=== PATIENT | female | born 1990 | race Caucasian/White ===

== ENCOUNTER 2016-04-28 23:03 | Emergency (ER) | payer OTHER ==
[~2016-04-28] VITALS: Ht 165.1 cm; Wt 72.6 kg
[~2016-04-28 23:03] MED LIST: NITROFURANTOIN100 M2 ORAL; NKM
[2016-04-29 00:18] LABS: APPEARANCE,URINE CLEAR; KETONES,URINE NEGATIVE (NEGATIVE); LEUKOCYTE ESTERASE ,URINE 1+ (NEGATIVE); NITRITE,URINE NEGATIVE (NEGATIVE); PH,URINE 8 (4.5-8.0); PROTEIN,URINE NEGATIVE (NEGATIVE); UROBILINOGEN,URINE NORMAL MG/DL (0.0-1.0)
[2016-04-29 00:25] LABS: RBC,URINE 0-2 /HPF (0 - 2); SQUAMOUS EPITHELIAL CELL,UR FEW /LPF (NONE/OCC); WBC,URINE 0-2 /HPF (0 - 2)
[2016-04-29 00:26] LABS: BACTERIA,URINE OCCASIONAL /HPF
[2016-04-29] MEDS ORDERED: PHENAZOPYRIDIN200 MG ORAL (01:32)
[2016-04-29 01:41] VITALS: BP 128/87
--- NOTE | 2016-04-29 03:00 | Emergency Room Report ---
History of Present Illness General Chief Complaint: Female Urogenital Problems Source: Patient Present Illness HPI 25 YO F with polyuria for 2-3 days and nausea. Denies dysuria. Was recently completed course of Abx for UTI. Denies discharge, sexual activity. Denies vomiting, abd pain, diarhea, fever/chills. Allergies: Coded Allergies: SULFA (SULFONAMIDE ANTIBIOTICS) (Verified Allergy, Severe, Hives, 08/16/14) Patient History Past Medical History: none Past Surgical History: none Pertinent Family History: none Social History: Denies: alcohol use, drug use, smoking Last Menstrual Period: 07/2015 Now: No : 2 Para: 0 Immunizations: UTD Reviewed Nursing Documentation: PMH: Agreed, PSxH: Agreed Nursing Documentation-PMH History Of Psychiatric Problem: Yes - anxiety Review of Systems All Other Systems: negative except mentioned in HPI Physical Exam Vital Signs Date Time Temp Pulse Resp B/P Pulse Ox O2 Delivery O2 Flow Rate FiO2 04/28/16 23:13 98.2 123 16 136/82 100 Room Air Sp02 EP Interpretation: reviewed, normal General Appearance: normal inspection, well appearing, no apparent distress, alert, GCS 15, non-toxic Head: normocephalic, atraumatic Eyes: bilateral eye EOMI, bilateral eye PERRL ENT: normal ENT inspection, hearing grossly normal, normal voice Neck: normal inspection, full range of motion, supple, no bony tend Respiratory: normal inspection, lungs clear, normal breath sounds, no respiratory distress, no retraction, no wheezing Cardiovascular #1: regular rate, rhythm, no edema Gastrointestinal: normal inspection, normal bowel sounds, non tender, soft, no guarding, no hernia Genitourinary: no CVA tenderness Musculoskeletal: normal inspection, back normal, normal range of motion, Sergio' s Sign negative Neurologic: normal inspection, alert, oriented x3, responsive, limerock tower loader III-XII nml as tested, motor strength/tone normal, speech normal Psychiatric: normal inspection, judgement/insight normal, mood/affect normal Skin: normal inspection, normal color, no rash Medical Decision Making Diagnostic Impression: Primary Impression: Dysuria ER Course 25 YO F with dysuria. VSS. Afebrile. No systemic symptoms. UA negative for infection PO zofran given for nausea. Abd non-focal. Low concern for acute bacterial or surgical process Rx Pyrddium DC home Last Vital Signs Date Time Temp Pulse Resp B/P Pulse Ox O2 Delivery O2 Flow Rate FiO2 04/29/16 01:41 97.2 86 14 128/87 99 Room Air Status: improved Disposition: HOME, SELF-CARE Condition: Improved Scripts Phenazopyridine Hcl* (PYRIDIUM*) 200 Mg Tablet 200 MG ORAL THREE TIMES A DAY for 2 Days, #6 TAB 0 Refills Prov: TALI GLORIA M.D. 04/29/16 Referrals: [facility] (PCP) Patient Instructions: Dysuria TALI GLORIA M.D. Apr 29, 2016 03:00
== END 2016-04-29 01:41 | disposition home or self-care (01) ==
LOC: EMR 23:55
DX: R30.0 Dysuria (principal); Z88.2 Allergy status to sulfonamides; F41.9 Anxiety disorder, unspecified
CPT/HCPCS: 81003; 81025; 99283

== ENCOUNTER 2016-05-21 00:37 | Emergency (ER) | payer OTHER ==
[~2016-05-21] VITALS: Ht 165.1 cm; Wt 77.1 kg
[~2016-05-21 00:37] MED LIST changes: +PHENAZOPYRIDIN200 MG ORAL
[2016-05-21] MEDS ORDERED: Ketorolac 30mg Inj IV ONE (01:30)
--- NOTE | 2016-05-21 01:30 | Emergency Room Report ---
History of Present Illness General Chief Complaint: Vomiting Source: Patient Present Illness HPI This is a 26-year-old female with no significant past medical history. She presents with chief complaint abdominal pain with vomiting. Onset about 2 hours ago. Multiple episode vomiting. Nonbloody and nonbilious. Pain is 10 out of 10. No diarrhea. Allergies: Coded Allergies: SULFA (SULFONAMIDE ANTIBIOTICS) (Verified Allergy, Severe, Hives, 08/16/14) Patient History Past Medical History: see triage record, old chart reviewed Past Surgical History: none Pertinent Family History: none Social History: Reports: drug use - History of amphetamine, smoking Last Menstrual Period: Apr Now: No Immunizations: other Reviewed Nursing Documentation: PMH: Agreed, PSxH: Agreed Review of Systems Eye: Denies: blurred vision, eye pain ENT: Denies: ear pain, nose congestion, throat swelling Respiratory: Denies: cough, shortness of breath Cardiovascular: Denies: chest pain, palpitations Gastrointestinal: Reports: abdominal pain, nausea, vomiting Musculoskeletal: Denies: back pain, joint pain Skin: Denies: rash Neurological: Denies: headache, numbness Endocrine: Denies: increased thirst, increased urine Hematologic/Lymphatic: Denies: easy bruising All Other Systems: negative except mentioned in HPI Physical Exam Vital Signs Date Time Temp Pulse Resp B/P Pulse Ox O2 Delivery O2 Flow Rate FiO2 05/21/16 01:01 97.7 103 16 108/71 94 Room Air vitals normal Sp02 EP Interpretation: reviewed, normal General Appearance: well appearing, no apparent distress, alert Head: normocephalic, atraumatic Eyes: bilateral eye EOMI, bilateral eye PERRL ENT: hearing grossly normal, normal pharynx Neck: full range of motion, supple, no meningismus Respiratory: chest non-tender, lungs clear, normal breath sounds Cardiovascular #1: regular rate, rhythm, no murmur Gastrointestinal: normal bowel sounds, no mass, no organomegaly, no bruit, non- distended, tenderness - Diffuse Musculoskeletal: back normal, gait/station normal, normal range of motion Neurologic: alert, oriented x3 Psychiatric: mood/affect normal Skin: warm/dry Medical Decision Making Diagnostic Impression: Primary Impression: Vomiting Qualified Codes: R11.2 - Nausea with vomiting, unspecified Additional Impression: Abdominal pain Qualified Codes: R10.84 - Generalized abdominal pain ER Course Patient presents with abdominal pain and vomiting. She is asymptomatic right now. On repeat exam no pain. Abdomen soft. Good bowel sounds. I see no evidence of acute abdomen. No evidence of obstruction. She has not given a urine sample yet. She has no symptom of her urinary tract infection. [place] better and wants to go home. She does have an elevated white count. This is probably secondary to acute stress response and/or pain and/or viral infection. Lab Results Impression labs with elevated WBC Last Vital Signs Date Time Temp Pulse Resp B/P Pulse Ox O2 Delivery O2 Flow Rate FiO2 05/21/16 01:01 97.7 103 16 108/71 94 Room Air Status: improved Disposition: HOME, SELF-CARE Condition: Stable Patient Instructions: Nausea and Vomiting, Adult Additional Instructions: Followup with your Dr. in 2-3 days. Return if worse. JOHNNY BLEVINS M.D. May 21, 2016 01:30
[2016-05-21 01:48] LABS: MEAN CORPUSCULAR HEMOGLOBIN 32.6 PG (27.0-31.0); MEAN CORPUSCULAR HGB CONC 34.6 G/DL (32.0-36.0); MEAN CORPUSCULAR VOLUME 94 FL (80-99); PLATELET COUNT 279 K/UL (150-450); RED CELL DISTRIBUTION WIDTH 11.8 % (11.6-14.8); WHITE BLOOD COUNT 15.2 K/UL (4.8-10.8)
[2016-05-21 01:57] VITALS: BP 110/74
[2016-05-21 02:04] LABS: ALANINE AMINOTRANSFERASE 17 U/L (3-33); ALBUMIN/GLOBULIN RATIO 1.2 (1.0-2.7); ANION GAP 16 (5-15); ASPARTATE AMINO TRANSFERASE 19 U/L (5-40); CALCIUM 9.1 mg/dL (8.6-10.2); CARBON DIOXIDE 25 mEQ/L (20-30); CHLORIDE 100 mEQ/L (98-107); CREATININE 0.8 mg/dL (0.5-0.9); GLOMERULAR FILTRATION RATE > 60 mL/min (>60); HEMOLYSIS 6; LIPASE 42 U/L (< 60); POTASSIUM 4.2 mEQ/L (3.4-4.9); SODIUM 141 mEQ/L (135-145); TOTAL PROTEIN 7.8 g/dL (6.6-8.7)
[2016-05-21 03:07] VITALS: BP 114/78
[2016-05-21 03:10] VITALS: BP 114/78
== END 2016-05-21 03:11 | disposition home or self-care (01) ==
LOC: EMR 01:20
DX: R11.2 Nausea with vomiting, unspecified (principal); R10.84 Generalized abdominal pain; Z88.2 Allergy status to sulfonamides; F17.200 Nicotine dependence, unspecified, uncomplicated
CPT/HCPCS: 36415; 80053; 83690; 85025; 96361; 96374; 96375; 99284; J1885; J2405

== ENCOUNTER 2016-06-27 23:45 | Emergency (ER) | payer OTHER ==
[~2016-06-27] VITALS: Ht 165.1 cm; Wt 72.1 kg
[2016-06-28 00:31] VITALS: BP 117/77
[2016-06-28] MEDS ORDERED: Bactrim DS (160mg/800mg) tab ORAL ONE (00:45)
[2016-06-28] MEDS ORDERED: CLINDAMYCIN HC300 MG ORAL (00:53)
--- NOTE | 2016-06-28 00:54 | Emergency Room Report ---
History of Present Illness General Chief Complaint: Skin Rash/Abscess Source: Patient Present Illness HPI Is a 26-year-old female who is right-hand dominant. She presents with a rash and swelling to the right index finger. Onset for 4 days now. It drained today. There was a blister over it. She thought it may be a spider bite. Denies any other complaint. Denies any burn. Allergies: Coded Allergies: SULFA (SULFONAMIDE ANTIBIOTICS) (Verified Allergy, Severe, Hives, 08/16/14) Patient History Past Medical History: see triage record, old chart reviewed Past Surgical History: other Pertinent Family History: none Social History: Denies: drug use Last Menstrual Period: 2 MONTHS AGO Now: No Immunizations: other Reviewed Nursing Documentation: PMH: Agreed, PSxH: Agreed Review of Systems Eye: Denies: blurred vision, eye pain ENT: Denies: ear pain, nose congestion, throat swelling Respiratory: Denies: cough, shortness of breath Cardiovascular: Denies: chest pain, palpitations Gastrointestinal: Denies: abdominal pain, diarrhea, nausea, vomiting Musculoskeletal: Denies: back pain, joint pain Skin: Denies: rash Neurological: Denies: headache, numbness Endocrine: Denies: increased thirst, increased urine Hematologic/Lymphatic: Denies: easy bruising All Other Systems: negative except mentioned in HPI Physical Exam Vital Signs Date Time Temp Pulse Resp B/P Pulse Ox O2 Delivery O2 Flow Rate FiO2 06/28/16 00:23 98.4 100 16 117/77 98 vitals normal Sp02 EP Interpretation: reviewed, normal General Appearance: well appearing, no apparent distress, alert Head: normocephalic, atraumatic Eyes: bilateral eye EOMI, bilateral eye PERRL ENT: hearing grossly normal, normal pharynx Neck: full range of motion, supple, no meningismus Respiratory: chest non-tender, lungs clear, normal breath sounds Cardiovascular #1: regular rate, rhythm, no murmur Gastrointestinal: normal bowel sounds, non tender, no mass, no organomegaly, no bruit, non-distended Musculoskeletal: back normal, gait/station normal, normal range of motion, other - right index finger: 1cm area of erythema. circular. Yellowish drainage. Psychiatric: mood/affect normal Skin: warm/dry Medical Decision Making Diagnostic Impression: Primary Impression: Infection of index finger ER Course Patient presents with infection the right index finger. This could be an abscess versus a burn. She does have a history of methamphetamine abuse. This may be from a pipe. No evidence of necrotizing fasciitis. We'll going to her on antibiotics to cover for staph infection. No evidence of septic joint Last Vital Signs Date Time Temp Pulse Resp B/P Pulse Ox O2 Delivery O2 Flow Rate FiO2 06/28/16 00:31 98.4 16 117/77 98 06/28/16 00:23 100 Status: improved Disposition: HOME, SELF-CARE Condition: Stable Scripts Clindamycin Hcl (CLINDAMYCIN HCL) 300 Mg Capsule 300 MG ORAL THREE TIMES A DAY, #21 CAP Prov: JOHNNY BLEVINS M.D. 06/28/16 Patient Instructions: Abscess Additional Instructions: Keep clean. Follow with in 2-3 days. Return if symptom worsen. JOHNNY BLEVINS M.D. Jun 28, 2016 00:54
[2016-06-28] MEDS ORDERED: Clindamycin 150mg cap ORAL ONE (01:00)
[2016-06-28 01:02] VITALS: BP 117/77
== END 2016-06-28 01:02 | disposition home or self-care (01) ==
LOC: EMR 06-28 00:55
DX: L08.9 Local infection of the skin and subcutaneous tissue, unspecified (principal); Z88.2 Allergy status to sulfonamides
CPT/HCPCS: 99283

== ENCOUNTER 2016-11-03 14:19 | Emergency (ER) | payer OTHER ==
[~2016-11-03] VITALS: Ht 167.6 cm; Wt 81.6 kg
[~2016-11-03 14:19] MED LIST changes: +CLINDAMYCIN HC300 MG ORAL
[2016-11-03 15:01] VITALS: BP 100/70
--- NOTE | 2016-11-03 15:26 | Emergency Room Report ---
History of Present Illness General Chief Complaint: General Complaint Source: Family Member Present Illness HPI 26 YO Female presents to the ED brought by mother c/o increased lethargy, nausea , and disoriented after starting Risperdal and Zoloft 2 days ago. pt. has hx of schizophrenia, depression, anxiety, and methamphetamine abuse and dependence. pt. has gone through detox several times, and most recently pt. was d/c from psychiatric facility after being started on above medications. pt. denies SI or HI, she reports she is worried because she thinks she is " bad" and that "there are demons, and she does not want to be bad" pt. denies increase in her delusions. mother states that she has been tried on several medications in the past, and some work for approximately 2 weeks before pt. becomes aggressive, or has other side effects. Denies abdominal pain, vomiting, joint pain, fevers, rashes. mother reports hx of aggression. Mother denies current aggression from the daughter and reports feeling safe. mother states she does not have a regular PCP or psychiatric provider. Denies CP, Palpitations, LOC, AMS, dizziness, Changes in Vision, Sensation, paresthesias, or a sudden severe headache. Allergies: Coded Allergies: SULFA (SULFONAMIDE ANTIBIOTICS) (Verified Allergy, Severe, Hives, 08/16/14) Patient History Past Medical History: see triage record Past Surgical History: none Pertinent Family History: none Social History: Reports: drug use - meth Last Menstrual Period: now Now: No Reviewed Nursing Documentation: PMH: Agreed, PSxH: Agreed Review of Systems All Other Systems: negative except mentioned in HPI Physical Exam Vital Signs Date Time Temp Pulse Resp B/P Pulse Ox O2 Delivery O2 Flow Rate FiO2 11/03/16 14:41 97.9 94 14 100/70 98 Room Air Sp02 EP Interpretation: reviewed, normal General Appearance: no apparent distress, alert, GCS 15, non-toxic Head: normocephalic, atraumatic Eyes: bilateral eye PERRL, bilateral eye normal inspection ENT: hearing grossly normal, normal pharynx, no angioedema, normal voice Neck: full range of motion, supple/symm/no masses Respiratory: lungs clear, normal breath sounds, speaking full sentences - very slow speech Cardiovascular #1: regular rate, rhythm, no edema Gastrointestinal: non tender, soft, no guarding Musculoskeletal: back normal, gait/station normal, normal range of motion, non- tender Neurologic: alert, oriented x3, responsive, motor strength/tone normal, sensory intact, speech normal Psychiatric: memory normal, no suicidal/homicidal ideation, depressed affect, other - delusions of demons, extremly flat affact Skin: normal color, no rash, warm/dry, well hydrated Medical Decision Making PA Attestation Dr. fernandez is my supervising Physician whom patient management has been discussed with. Diagnostic Impression: Primary Impression: Encounter for medication adjustment Additional Impression: Psychotic disorder with delusions ER Course 26 YO Female presents to the ED brought by mother c/o increased lethargy, nausea , and disoriented after starting Risperdal and Zoloft 2 days ago. pt. has hx of schizophrenia, depression, anxiety, and methamphetamine abuse and dependence. pt. has gone through detox several times, and most recently pt. was d/c from psychiatric facility after being started on above medications. pt. denies SI or HI, she reports she is worried because she thinks she is " bad" and that "there are demons, and she does not want to be bad" pt. denies increase in her delusions. mother states that she has been tried on several medications in the past, and some work for approximately 2 weeks before pt. becomes aggressive, or has other side effects. Denies abdominal pain, vomiting, joint pain, fevers, rashes. mother reports hx of aggression. Mother denies current aggression from the daughter and reports feeling safe. mother states she does not have a regular PCP or psychiatric provider. Denies CP, Palpitations, LOC, AMS, dizziness, Changes in Vision, Sensation, paresthesias, or a sudden severe headache. Pt is has flat affect and is restless. reports delusions of demons, and " that she is possessed and wants to be good" -mother discusses hx of drug use: meth, and several detox facilities as well as 5150 holds. Ddx considered but are not limited to OD, SI/HI, psychosis, UTI, intoxication Vital signs: are WNL, pt. is afebrile H&PE are most consistent with behavioral/mental health issue ORDERS: -Tylenol PO for FALK 4/10 in severity - Telephone consult with Dr. Jessica ( psych MD) regarding medication management. : pt. to be d/c from am dosage of Risperdal, and zoloft will be switched to Cymbalta daily as less nausea side-effects. ED INTERVENTIONS: - d/w parent and patient the changes to medications and to follow up at [facility]. -D/w mother that psychiatric medications take time to work and that it is important to establish her daughter with a Provider. DISCHARGE: At this time pt. is stable for d/c to home. Will provide printed patient care instructions, and any necessary prescriptions. Care plan and follow up instructions have been discussed with the patient prior to discharge. Last Vital Signs Date Time Temp Pulse Resp B/P Pulse Ox O2 Delivery O2 Flow Rate FiO2 11/03/16 14:41 97.9 94 14 100/70 98 Room Air Disposition: HOME, SELF-CARE Condition: Stable Physician Consult: Dr. Jessica Scripts Duloxetine (Cymbalta) 20 Mg Capsule. 20 MG ORAL DAILY for 30 Days, #30 CAP Prov: Amy Gold 11/03/16 Risperidone* (RISPERDAL*) 2 Mg Tablet 2 MG ORAL QHS, #20 TAB 0 Refills Prov: Amy Gold 11/03/16 Patient Instructions: Schizophrenia Additional Instructions: Take medications as directed. Follow up with a Psychiatric Provider in 2-3 days, even if your symptoms have resolved. --Please review [facility] , if you do not already have a psychiatric provider to continue medication management. Recommend cognitive behavioral therapy in conjunction with medication management. Return sooner to ED if new symptoms occur, or current symptoms become worse. - Please note that this Emergency Department Report was dictated using [employer] collector driver technology software, occasionally this can lead to erroneous entry secondary to interpretation by the dictation equipment. Amy Gold Nov 03, 2016 15:26
[2016-11-03] MEDS ORDERED: CYMBALTA20 MG ORAL (15:28)
[2016-11-03] MEDS ORDERED: RISPERDAL2 MG ORAL (15:28)
[2016-11-03 15:46] VITALS: BP 100/70
== END 2016-11-03 18:03 | disposition home or self-care (01) ==
LOC: EMR 15:30
DX: F29 Unspecified psychosis not due to a substance or known physiological condition (principal); F22 Delusional disorders; F41.9 Anxiety disorder, unspecified; Z88.2 Allergy status to sulfonamides
CPT/HCPCS: 99284

== ENCOUNTER 2017-01-06 17:30 | Emergency (ER) | payer OTHER ==
[~2017-01-06] VITALS: Ht 165.1 cm; Wt 72.6 kg
[~2017-01-06 17:30] MED LIST changes: +CYMBALTA20 MG ORAL; +RISPERDAL2 MG ORAL
[2017-01-06 17:45] VITALS: BP 105/64
[2017-01-06 18:16] LABS: BASOPHILS % (AUTO) 1.1 % (0.0-2.0); EOSINOPHILS % (AUTO) 0.8 % (0.0-3.0); LYMPHOCYTES % (AUTO) 31.7 % (20.0-45.0); MEAN CORPUSCULAR HEMOGLOBIN 34.5 PG (27.0-31.0); MEAN CORPUSCULAR HGB CONC 35.4 G/DL (32.0-36.0); MEAN CORPUSCULAR VOLUME 97 FL (80-99); MEAN PLATELET VOLUME 5.4 FL (6.5-10.1); MONOCYTES % (AUTO) 6.9 % (1.0-10.0); NEUTROPHILS % (AUTO) 59.5 % (45.0-75.0); PLATELET COUNT 273 K/UL (150-450); RED BLOOD COUNT 4.33 M/UL (4.20-5.40); RED CELL DISTRIBUTION WIDTH 10.9 % (11.6-14.8); WHITE BLOOD COUNT 6.4 K/UL (4.8-10.8)
[2017-01-06 18:34] LABS: ALANINE AMINOTRANSFERASE 9 U/L (3-33); ALBUMIN/GLOBULIN RATIO 1.2 (1.0-2.7); ANION GAP 8 (5-15); ASPARTATE AMINO TRANSFERASE 13 U/L (5-40); CALCIUM 9.4 mg/dL (8.6-10.2); CARBON DIOXIDE 29 mEQ/L (20-30); CHLORIDE 103 mEQ/L (98-107); CREATININE 0.7 mg/dL (0.5-0.9); GLOMERULAR FILTRATION RATE > 60 mL/min (>60); HEMOLYSIS 2; LIPASE 70 U/L (< 60); POTASSIUM 4.1 mEQ/L (3.4-4.9); SODIUM 140 mEQ/L (135-145); TOTAL PROTEIN 7.3 g/dL (6.6-8.7)
[2017-01-06 18:44] LABS: APPEARANCE,URINE CLOUDY; KETONES,URINE NEGATIVE (NEGATIVE); LEUKOCYTE ESTERASE ,URINE 2+ (NEGATIVE); NITRITE,URINE NEGATIVE (NEGATIVE); PH,URINE 6 (4.5-8.0); PROTEIN,URINE 3+ (NEGATIVE); UROBILINOGEN,URINE NORMAL MG/DL (0.0-1.0)
[2017-01-06 18:46] LABS: RBC,URINE TNTC /HPF (0 - 2)
[2017-01-06 18:48] LABS: BACTERIA,URINE OCCASIONAL /HPF; SQUAMOUS EPITHELIAL CELL,UR OCCASIONAL /LPF (NONE/OCC); WBC,URINE 0-2 /HPF (0 - 2)
[2017-01-06 19:16] VITALS: BP 104/68
[2017-01-06] MEDS ORDERED: ZOFRAN4 M3 ORAL (19:18)
[2017-01-06] MEDS ORDERED: TYLENOL EXTRA500 MG ORAL (19:18)
[2017-01-06 19:29] VITALS: BP 104/68
--- NOTE | 2017-01-06 20:56 | Emergency Room Report ---
History of Present Illness General Chief Complaint: Diarrhea Source: Patient Present Illness HPI The patient is a 26-year-old female presenting for nausea and diarrhea. She states she has had these symptoms on and off for one month although she states she had diarrhea since yesterday and last episodes were 2 weeks prior. She states she has had one episode today. It is light brown. She denies any sick contacts or recent travel. She denies any pain at this time. She denies other symptoms including fever, chills, fatigue, back pain, dysuria, hematuria, melena , hematochezia Allergies: Coded Allergies: SULFA (SULFONAMIDE ANTIBIOTICS) (Verified Allergy, Severe, Hives, 08/16/14) Patient History Past Medical History: see triage record Pertinent Family History: none Last Menstrual Period: now Now: No Reviewed Nursing Documentation: PMH: Agreed, PSxH: Agreed Nursing Documentation-PMH Past Medical History: No Stated History Review of Systems All Other Systems: negative except mentioned in HPI Physical Exam Vital Signs Date Time Temp Pulse Resp B/P (MAP) Pulse Ox O2 Delivery O2 Flow Rate FiO2 01/06/17 17:32 97.5 84 18 100/69 98 Room Air Sp02 EP Interpretation: reviewed, normal General Appearance: no apparent distress, alert, GCS 15, non-toxic Head: normocephalic, atraumatic Eyes: bilateral eye normal inspection, bilateral eye PERRL ENT: hearing grossly normal, normal pharynx, no angioedema, normal voice Respiratory: chest non-tender, lungs clear, normal breath sounds, speaking full sentences Cardiovascular #1: regular rate, rhythm, no edema Gastrointestinal: normal inspection, normal bowel sounds, non tender, soft, no mass, no guarding Musculoskeletal: back normal, gait/station normal, normal range of motion, non- tender Neurologic: alert, oriented x3, responsive, motor strength/tone normal, sensory intact, speech normal Psychiatric: judgement/insight normal, memory normal, mood/affect normal, no suicidal/homicidal ideation Skin: normal color, no rash, warm/dry, well hydrated Lymphatic: no adenopathy Medical Decision Making PA Attestation Dr. Ku is my supervising physician. Patient management was discussed with my supervising physician Diagnostic Impression: Primary Impression: Gastroenteritis ER Course The patient is a 26-year-old female presenting for nausea and diarrhea Differential diagnoses considered include but not limited to gastritis, gastroenteritis, pancreatitis, appendicitis, UTI, among others PE: vitals WNL. NAD abd is soft and non tender. Normal BS. Non distended Pt was given IV fluids and feels better. She will be nc'ed home with prescription for zofran and Tylenol. ER precautions given Laboratory Tests Test 01/06/17 18:00 01/06/17 18:14 White Blood Count 6.4 K/UL (4.8-10.8) Red Blood Count 4.33 M/UL (4.20-5.40) Hemoglobin 15.0 G/DL (12.0-16.0) Hematocrit 42.3 % (37.0-47.0) Mean Corpuscular Volume 97 FL (80-99) Mean Corpuscular Hemoglobin 34.5 PG (27.0-31.0) H Mean Corpuscular Hemoglobin Concent 35.4 G/DL (32.0-36.0) Red Cell Distribution Width 10.9 % (11.6-14.8) L Platelet Count 273 K/UL (150-450) Mean Platelet Volume 5.4 FL (6.5-10.1) L Neutrophils (%) (Auto) 59.5 % (45.0-75.0) Lymphocytes (%) (Auto) 31.7 % (20.0-45.0) Monocytes (%) (Auto) 6.9 % (1.0-10.0) Eosinophils (%) (Auto) 0.8 % (0.0-3.0) Basophils (%) (Auto) 1.1 % (0.0-2.0) Sodium Level 140 mEQ/L (135-145) Potassium Level 4.1 mEQ/L (3.4-4.9) Chloride Level 103 mEQ/L (98-107) Carbon Dioxide Level 29 mEQ/L (20-30) Anion Gap 8 (5-15) Blood Urea Nitrogen 13 mg/dL (7-23) Creatinine 0.7 mg/dL (0.5-0.9) Estimate Glomerular Filtration Rate > 60 mL/min (>60) Glucose Level 83 mg/dL (74-106) Calcium Level 9.4 mg/dL (8.6-10.2) Total Bilirubin 0.4 mg/dL (0.0-1.2) Aspartate Amino Transferase (AST) 13 U/L (5-40) Alanine Aminotransferase (ALT) 9 U/L (3-33) Alkaline Phosphatase 47 U/L (35-104) Total Protein 7.3 g/dL (6.6-8.7) Albumin 4.1 g/dL (3.5-5.2) Globulin 3.2 g/dL Albumin/Globulin Ratio 1.2 (1.0-2.7) Lipase 70 U/L (< 60) H Urine Color Red Urine Appearance Cloudy Urine pH 6 (4.5-8.0) Urine Specific [place] 1.015 (1.005-1.035) Urine Protein 3+ (NEGATIVE) H Urine Glucose (UA) Negative (NEGATIVE) Urine Ketones Negative (NEGATIVE) Urine Occult Blood 5+ (NEGATIVE) H Urine Nitrite Negative (NEGATIVE) Urine Bilirubin Negative (NEGATIVE) Urine Urobilinogen Normal MG/DL (0.0-1.0) Urine Leukocyte Esterase 2+ (NEGATIVE) H Urine RBC Tntc /HPF (0 - 2) H Urine WBC 0-2 /HPF (0 - 2) Urine Squamous Epithelial Cells Occasional /LPF Urine Bacteria Occasional /HPF (NONE) Urine HCG, Qualitative Negative Lab Results Impression CBC unremarkable CMP unremarkable Lipase marginally elevated Last Vital Signs Date Time Temp Pulse Resp B/P (MAP) Pulse Ox O2 Delivery O2 Flow Rate FiO2 01/06/17 19:29 97.9 62 14 104/68 100 Room Air Status: improved Disposition: HOME, SELF-CARE Condition: Improved Scripts Acetaminophen* (TYLENOL EXTRA STRENGTH*) 500 Mg Tablet 500 MG ORAL Q8H Y for Prn Headache/Temp > 101, #30 TAB 0 Refills Prov: ALYCIA MARQUEZ P.A. 01/06/17 Ondansetron* (ZOFRAN*) 4 Mg Tablet 4 MG ORAL Q6H Y for Nausea & Vomiting, #20 TAB Prov: GARETHANALYCIA P.A. 01/06/17 Patient Instructions: Diarrhea, Adult Additional Instructions: I discussed my findings with the patient. All questions and concerns have been answered. Treatment and medication compliance have been addressed. I advised the patient that they need to follow up with PMD in 3-5 days. Return to ED if symptoms worsen, new symptoms arise, or if needed for any reason. Patient verbalized understanding of discharge instructions. TERALYCIA ARORA Jan 06, 2017 20:56
== END 2017-01-06 19:33 | disposition home or self-care (01) ==
LOC: EMR 17:56
DX: K52.9 Noninfective gastroenteritis and colitis, unspecified (principal); Z88.2 Allergy status to sulfonamides
CPT/HCPCS: 36415; 80053; 81003; 81025; 83690; 85025; 96360; 99284

== ENCOUNTER 2017-10-10 17:54 | Emergency (ER) | payer OTHER ==
[~2017-10-10] VITALS: Ht 165.1 cm; Wt 72.6 kg
[~2017-10-10 17:54] MED LIST changes: +TYLENOL EXTRA500 MG ORAL; +ZOFRAN4 M3 ORAL
[2017-10-10 18:03] VITALS: BP 106/72
[2017-10-10] MEDS ORDERED: Phenazopyridine 200mg tab ORAL ONE (18:15)
[2017-10-10 18:42] LABS: APPEARANCE,URINE CLEAR; BILIRUBIN, URINE NEGATIVE (NEGATIVE); COLOR,URINE YELLOW; GLUCOSE, URINE (UA) NEGATIVE (NEGATIVE); KETONES,URINE NEGATIVE (NEGATIVE); LEUKOCYTE ESTERASE ,URINE 2+ (NEGATIVE); NITRITE,URINE NEGATIVE (NEGATIVE); PH,URINE 5 (4.5-8.0); PROTEIN,URINE NEGATIVE (NEGATIVE); UROBILINOGEN,URINE NORMAL MG/DL (0.0-1.0)
--- NOTE | 2017-10-10 19:06 | Emergency Room Report ---
History of Present Illness General Chief Complaint: Female Urogenital Problems Source: Patient Present Illness HPI 27-year-old female presents emergency department complaining of 7 out of 10 in severity dysuria as well as urinary frequency and urgency 3 weeks. Patient denies fevers, chills, hematuria, low back pain swollen tender lymph nodes or vaginal discharge/lesions. Patient and eyes recent unprotected intercourse, and denies . Denies abdominal pain/tenderness. Denies nausea, vomiting, constipation or diarrhea. Allergies: Coded Allergies: SULFA (SULFONAMIDE ANTIBIOTICS) (Verified Allergy, Severe, Hives, 08/16/14) Patient History Past Medical History: see triage record Past Surgical History: none Pertinent Family History: none Last Menstrual Period: 2 weeks ago Now: No : 0 Para: 0 Reviewed Nursing Documentation: PMH: Agreed; PSxH: Agreed Nursing Documentation-PMH Past Medical History: No Stated History Review of Systems All Other Systems: negative except mentioned in HPI Physical Exam Vital Signs Date Time Temp Pulse Resp B/P (MAP) Pulse Ox O2 Delivery O2 Flow Rate FiO2 10/10/17 17:58 98.3 80 20 106/72 98 Room Air 98.2 Sp02 EP Interpretation: reviewed, normal General Appearance: no apparent distress, alert, GCS 15, non-toxic Head: normocephalic, atraumatic ENT: hearing grossly normal, normal voice Neck: full range of motion Respiratory: lungs clear, normal breath sounds, speaking full sentences Cardiovascular #1: regular rate, rhythm Gastrointestinal: normal bowel sounds, non tender, soft, non-distended Genitourinary: normal inspection, no CVA tenderness Musculoskeletal: back normal, gait/station normal, normal range of motion Neurologic: alert, oriented x3, responsive, motor strength/tone normal, sensory intact, normal gait, speech normal, grossly normal Psychiatric: other - Flattened affect, and delayed response time. Skin: normal color, no rash, warm/dry, well hydrated Lymphatic: no adenopathy Medical Decision Making PA Attestation Dr. Faulkner is my supervising Physician whom patient management has been discussed with. Diagnostic Impression: Primary Impression: UTI (urinary tract infection) Qualified Codes: N30.00 - Acute cystitis without hematuria ER Course 27-year-old female presents emergency department complaining of 7 out of 10 in severity dysuria as well as urinary frequency and urgency 3 weeks. Patient denies fevers, chills, hematuria, low back pain swollen tender lymph nodes or vaginal discharge/lesions. Patient and eyes recent unprotected intercourse, and denies . Denies abdominal pain/tenderness. Denies nausea, vomiting, constipation or diarrhea. Ddx considered but are not limited to UTi , Pyelo, STI, Stone, Cystitis Vital signs: are WNL, pt. is afebrile H&PE are most consistent with UTI ORDERS: - UA labs are attached - 2+ Leuks with moderate amount of bacteria ED INTERVENTIONS: -Pyridium PO DISCHARGE: At this time pt. is stable for d/c to home. Will provide printed patient care instructions, and any necessary prescriptions. Care plan and follow up instructions have been discussed with the patient prior to discharge. Labs Test 10/10/17 18:18 Urine Color Yellow Urine Appearance Clear Urine pH 5 (4.5-8.0) Urine Specific [place] 1.015 (1.005-1.035) Urine Protein Negative (NEGATIVE) Urine Glucose (UA) Negative (NEGATIVE) Urine Ketones Negative (NEGATIVE) Urine Occult Blood Negative (NEGATIVE) Urine Nitrite Negative (NEGATIVE) Urine Bilirubin Negative (NEGATIVE) Urine Urobilinogen Normal MG/DL (0.0-1.0) Urine Leukocyte Esterase 2+ (NEGATIVE) Urine RBC 0-2 /HPF (0 - 2) Urine WBC 2-4 /HPF (0 - 2) Urine Squamous Epithelial Cells Few /LPF (NONE/OCC) Urine Bacteria Moderate /HPF (NONE) Last Vital Signs Date Time Temp Pulse Resp B/P (MAP) Pulse Ox O2 Delivery O2 Flow Rate FiO2 10/10/17 18:03 98.2 64 20 106/72 98 Room Air 98.2 Disposition: HOME, SELF-CARE Condition: Stable Scripts Phenazopyridine Hcl* (PYRIDIUM*) 100 Mg Tablet 100 MG ORAL THREE TIMES A DAY for 3 Days, #9 TAB Prov: Amy Gold 10/10/17 Nitrofurantoin Monohyd/M-Cryst* (MACROBID 100 MG*) 100 Mg Capsule 100 MG ORAL EVERY 12 HOURS for 5 Days, #10 CAP Prov: Amy Gold 10/10/17 Patient Instructions: Urinary Tract Infection Additional Instructions: Take medications as directed. Pyridium will cause your urine to change color (Red/[place]), this is a normal side effect of the medication. Follow up with a Primary Care Provider in 3-5 days, even if your symptoms have resolved. --Please review list of primary care clinics, if you do not already have a primary care provider Return sooner to ED if new symptoms occur, or current symptoms become worse. - Please note that this Emergency Department Report was dictated using [employer] worker technology software, occasionally this can lead to erroneous entry secondary to interpretation by the dictation equipment. Amy Gold Oct 10, 2017 19:06
[2017-10-10] MEDS ORDERED: NITROFURANTOIN100 M2 ORAL ×2 (19:09→19:21)
[2017-10-10] MEDS ORDERED: PHENAZOPYRIDIN100 MG ORAL ×2 (19:09→19:21)
[2017-10-10 19:30] VITALS: BP 106/72
== END 2017-10-10 23:35 | disposition home or self-care (01) ==
LOC: EMR 18:37
DX: N39.0 Urinary tract infection, site not specified (principal); Z88.2 Allergy status to sulfonamides
CPT/HCPCS: 81003; 87086; 99284

== ENCOUNTER 2017-10-16 13:51 | Emergency (ER) | payer OTHER ==
[~2017-10-16] VITALS: Ht 165.1 cm; Wt 80.3 kg
[~2017-10-16 13:51] MED LIST changes: +PHENAZOPYRIDIN100 MG ORAL
--- NOTE | 2017-10-16 14:35 | Emergency Room Report ---
History of Present Illness General Chief Complaint: General Complaint Source: Patient Present Illness HPI pt is a 27 y.o. F with hx of agression, currenlty under tx by psych, here c/o 3 days of soreness and liquid coming out of her tongue piercing. pt denies pain, numbness, tingling, pus at the site of piercing. pt had the piercing done 3 days ago, reporting has been applying antiseptic to the site. also, 3 days ago, she was prescribed macrobid for UTI, reports the pills get stuck by the piercing and could only take a few pills. refuses difficulty swallowing, drinking liquid/solid. denies fever/chills, n/v/, sob, cp. 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 pt appears with tremor in tongue and insisits on keeping the piercing in. Allergies: Coded Allergies: SULFA (SULFONAMIDE ANTIBIOTICS) (Verified Allergy, Severe, Hives, 08/16/14) Patient History Past Medical History: see triage record Past Surgical History: none Pertinent Family History: unable to obtain Social History: Reports: smoking - daily tobacco Last Menstrual Period: 09/23/17 Now: No Reviewed Nursing Documentation: PMH: Agreed; PSxH: Agreed Nursing Documentation-PMH Past Medical History: No Stated History Review of Systems All Other Systems: negative except mentioned in HPI Physical Exam Vital Signs Date Time Temp Pulse Resp B/P (MAP) Pulse Ox O2 Delivery O2 Flow Rate FiO2 10/16/17 13:54 98.2 89 16 118/78 96 Room Air 98.2 Sp02 EP Interpretation: reviewed General Appearance: normal inspection, well appearing, no apparent distress, alert, GCS 15, non-toxic Eyes: bilateral eye normal inspection, bilateral eye PERRL ENT: hearing grossly normal, normal pharynx, no angioedema, uvula midline, other - tremor of tonue, on piercing in frontal midline tongue with blood clot, TTP Neck: normal inspection, full range of motion, supple Respiratory: normal inspection, chest non-tender, lungs clear, normal breath sounds, no rhonchi, no respiratory distress, no retraction, no accessory muscle use Cardiovascular #1: normal peripheral pulses, regular rate, rhythm, no edema, no gallop, no murmur Gastrointestinal: normal inspection, normal bowel sounds, soft Rectal: deferred Genitourinary: deferred Musculoskeletal: normal inspection, back normal Neurologic: normal inspection, alert, oriented x3, responsive Psychiatric: normal inspection, judgement/insight normal, no suicidal/ homicidal ideation, other - delayed respose Skin: normal inspection, normal color, no rash, warm/dry Lymphatic: normal inspection, no adenopathy Medical Decision Making PA Attestation all dx, orders, tx plans were reviewed and discussed with my supervising physician Dr. Faulkner Diagnostic Impression: Primary Impression: Painful tongue Additional Impressions: Infected pierced tongue UTI (urinary tract infection) ER Course pt is a 27 y.o. F with hx of agression, currenlty under tx by psych, here c/o 3 days of soreness and liquid coming out of her tongue piercing. pt denies pain, numbness, tingling, pus at the site of piercing. pt had the piercing done 3 days ago, reporting has been applying antiseptic to the site. also, 3 days ago, she was prescribed macrobid for UTI, reports the pills get stuck by the piercing and could only take a few pills. refuses difficulty swallowing, drinking liquid/solid. denies fever/chills, n/v/, sob, cp. 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 pt appears with tremor in tongue and insisits on keeping the piercing in. Ddx considered but are not limited to tongue infx,, cellulitis, edema of piercing site Vital signs: are WNL, pt. is afebrile H&PE are most consistent with edema of piercing site and UTI resolved ORDERS: UA and urine test ED INTERVENTIONS: None required at this time. DISCHARGE: At this time pt. is stable for d/c to home. Will provide printed patient care instructions, and any necessary prescriptions. Care plan and follow up instructions have been discussed with the patient prior to discharge. UA leuks positive, positive WBC Lab Results Impression positive luek in UA and positive WBC in UA EKG Diagnostic Results ST Segments: no acute changes Last Vital Signs Date Time Temp Pulse Resp B/P (MAP) Pulse Ox O2 Delivery O2 Flow Rate FiO2 10/16/17 13:54 98.2 89 16 118/78 96 Room Air 98.2 Disposition: HOME, SELF-CARE Condition: Stable Scripts Ibuprofen* (MOTRIN*) 600 Mg Tablet 600 MG ORAL FOUR TIMES A DAY for 10 Days, #30 TAB 0 Refills Prov: Claire Vu 10/16/17 Patient Instructions: Stomatitis Additional Instructions: pt advised to have the piercing taken off due to possible infx, pt refuses and signes the form that she refuses tx in this regard. return to ED if fever/ chills. take motrin prn pain/swelling Claire Vu Oct 16, 2017 14:34
[2017-10-16 14:38] LABS: APPEARANCE,URINE CLEAR; BILIRUBIN, URINE NEGATIVE (NEGATIVE); GLUCOSE, URINE (UA) NEGATIVE (NEGATIVE); KETONES,URINE 1+ (NEGATIVE); LEUKOCYTE ESTERASE ,URINE 2+ (NEGATIVE); NITRITE,URINE NEGATIVE (NEGATIVE); PH,URINE 7 (4.5-8.0); PROTEIN,URINE NEGATIVE (NEGATIVE); UROBILINOGEN,URINE NORMAL MG/DL (0.0-1.0)
[2017-10-16 14:49] LABS: COLOR,URINE YELLOW
[2017-10-16] MEDS ORDERED: IBUPROFEN600 MG ORAL (15:02)
[2017-10-16 15:17] VITALS: BP 113/78
== END 2017-10-16 15:17 | disposition home or self-care (01) ==
LOC: EMR 14:20
DX: K14.0 Glossitis (principal); N39.0 Urinary tract infection, site not specified
CPT/HCPCS: 81001; 81025; 99283

== ENCOUNTER 2017-12-18 01:55 | Emergency (ER) | payer MEDICAID, OTHER ==
[~2017-12-18] VITALS: Ht 167.6 cm; Wt 81.6 kg
[~2017-12-18 01:55] MED LIST changes: +IBUPROFEN600 MG ORAL
[2017-12-18 02:15] VITALS: BP 102/61
--- NOTE | 2017-12-18 02:23 | Emergency Room Report ---
History of Present Illness General Chief Complaint: Skin Rash/Abscess Source: Patient Present Illness HPI Is a 27-year-old female with no cerumen past medical history. She presents with chief complaint of sunburn. She was in a tanning bed for 9 minutes. Now she is red all over. Couldn't sleep because of the burning pain sensation. No fever chills but no nausea no vomiting. Denies any other complaint. No blistering. Has not take anything for it. Allergies: Coded Allergies: SULFA (SULFONAMIDE ANTIBIOTICS) (Verified Allergy, Severe, Hives, 08/16/14) Patient History Past Medical History: see triage record, old chart reviewed Past Surgical History: other Pertinent Family History: none Social History: Denies: smoking Last Menstrual Period: Nov Now: No Immunizations: other Reviewed Nursing Documentation: PMH: Agreed; PSxH: Agreed Review of Systems Eye: Denies: eye pain, blurred vision ENT: Denies: ear pain, nose congestion, throat swelling Respiratory: Denies: cough, shortness of breath Cardiovascular: Denies: chest pain, palpitations Gastrointestinal: Denies: abdominal pain, diarrhea, nausea, vomiting Musculoskeletal: Denies: back pain, joint pain Skin: Denies: rash Neurological: Denies: headache, numbness Endocrine: Denies: increased thirst, increased urine Hematologic/Lymphatic: Denies: easy bruising All Other Systems: negative except mentioned in HPI Physical Exam Vital Signs Date Time Temp Pulse Resp B/P (MAP) Pulse Ox O2 Delivery O2 Flow Rate FiO2 12/18/17 02:03 97.9 131 18 90/56 100 Room Air 97.9 vitals with tachycardia Sp02 EP Interpretation: reviewed, normal General Appearance: well appearing, no apparent distress, alert Head: normocephalic, atraumatic Eyes: bilateral eye PERRL, bilateral eye EOMI ENT: hearing grossly normal, normal pharynx Neck: full range of motion, supple, no meningismus Respiratory: chest non-tender, lungs clear, normal breath sounds Cardiovascular #1: regular rate, rhythm, no murmur, tachycardia - Heart rate 110 Gastrointestinal: normal bowel sounds, non tender, no mass, no organomegaly, no bruit, non-distended Musculoskeletal: back normal, gait/station normal, normal range of motion Neurologic: alert, oriented x3 Psychiatric: mood/affect normal Skin: warm/dry, rash - Torso with diffuse erythema from sunburn. No blistering. Medical Decision Making Diagnostic Impression: Primary Impression: Sunburn due to tanning bed ER Course She presents with sunburn from tanning bed. No blistering. We'll discharge home with symptomatically treatment. Last Vital Signs Date Time Temp Pulse Resp B/P (MAP) Pulse Ox O2 Delivery O2 Flow Rate FiO2 12/18/17 02:03 97.9 131 18 90/56 100 Room Air 97.9 Status: improved Disposition: HOME, SELF-CARE Condition: Stable Scripts Lidocaine/Menthol/Aloe Vera (ALOE VERA PAIN RELIEVING GEL) 454 Gm Gel..gram. 454 GM TP TID, #454 GM Prov: JOHNNY BLEVINS M.D. 12/18/17 Ibuprofen* (MOTRIN*) 600 Mg Tablet 600 MG ORAL THREE TIMES A DAY, #30 TAB 0 Refills Prov: JOHNNY BLEVINS M.D. 12/18/17 Additional Instructions: Avoid tanning bed. Follow-up with your doctor in 7 days. Return if worse. JOHNNY BLEVINS M.D. Dec 18, 2017 02:23
[2017-12-18] MEDS ORDERED: IBUPROFEN600 MG ORAL (02:27)
[2017-12-18] MEDS ORDERED: ALOE VERA PAIN454 GM TP (02:27)
[2017-12-21] MEDS ORDERED: METRONIDAZOLE500 MG ORAL (02:25)
== END 2017-12-18 02:50 | disposition home or self-care (01) ==
LOC: EMR 02:46
DX: L56.8 Other specified acute skin changes due to ultraviolet radiation (principal); W89.1XXA Exposure to tanning bed, initial encounter; Y92.9 Unspecified place or not applicable; R21 Rash and other nonspecific skin eruption; Z88.2 Allergy status to sulfonamides
CPT/HCPCS: 99283

== ENCOUNTER → 2017-12-21 | Emergency (ER) | payer MEDICAID ==
[~2017-12-21] VITALS: Ht 167.6 cm; Wt 81.6 kg
[~2017-12-21] MED LIST changes: +ALOE VERA PAIN454 GM TP; +METRONIDAZOLE500 MG ORAL
[2017-12-21 01:27] VITALS: BP 113/78
[2017-12-21 01:36] LABS: APPEARANCE,URINE CLEAR; BILIRUBIN, URINE NEGATIVE (NEGATIVE); COLOR,URINE PALE YELLOW; GLUCOSE, URINE (UA) NEGATIVE (NEGATIVE); KETONES,URINE NEGATIVE (NEGATIVE); LEUKOCYTE ESTERASE ,URINE NEGATIVE (NEGATIVE); NITRITE,URINE NEGATIVE (NEGATIVE); PH,URINE 7 (4.5-8.0); PROTEIN,URINE NEGATIVE (NEGATIVE); UROBILINOGEN,URINE NORMAL MG/DL (0.0-1.0)
[2017-12-21 02:35] VITALS: BP 118/74
--- NOTE | 2017-12-21 02:54 | Emergency Room Report ---
History of Present Illness General Chief Complaint: Female Urogenital Problems Source: Patient Present Illness HPI 27-year-old female presents ED complaining of vaginal discharge 1 day. States it has a fishy smell. Denies any dysuria or hematuria. Denies any recent unprotected sexual intercourse. No other aggravating relieving factors. Denies any other associated symptoms Allergies: Coded Allergies: SULFA (SULFONAMIDE ANTIBIOTICS) (Verified Allergy, Severe, Hives, 08/16/14) Patient History Past Medical History: none Past Surgical History: none Pertinent Family History: none Social History: Denies: smoking, alcohol use, drug use Last Menstrual Period: november 28, 2017 Now: No Immunizations: UTD Reviewed Nursing Documentation: PMH: Agreed; PSxH: Agreed Nursing Documentation-PMH Past Medical History: No Stated History Review of Systems All Other Systems: negative except mentioned in HPI Physical Exam Vital Signs Date Time Temp Pulse Resp B/P (MAP) Pulse Ox O2 Delivery O2 Flow Rate FiO2 12/21/17 00:58 98.2 84 16 113/78 98 Room Air 98.2 Sp02 EP Interpretation: reviewed, normal General Appearance: no apparent distress, alert, GCS 15, non-toxic Head: normocephalic Eyes: bilateral eye normal inspection, bilateral eye PERRL ENT: normal ENT inspection Neck: normal inspection Respiratory: normal inspection Cardiovascular #1: normal inspection Gastrointestinal: normal bowel sounds, non tender, soft, non-distended, no guarding, no rebound Rectal: deferred Genitourinary: no CVA tenderness, other - portable sawmill operator present. cervical discharge noted Musculoskeletal: normal inspection Neurologic: alert, oriented x3, responsive, motor strength/tone normal, sensory intact, speech normal Psychiatric: normal inspection Skin: normal inspection Lymphatic: normal inspection Medical Decision Making Diagnostic Impression: Primary Impression: Bacterial vaginosis ER Course Hospital Course 27-year-old female presents to ED complaining of discharge Differential diagnoses include: UTI, trichimonas, cervicitis Clinical course Patient placed on stretcher. After initial history, portable sawmill operator bedside. I performed a pelvic exam and collected wet mount sample. Cervical discharge noted. UA noted to be unremarkable. wet mount shows clue cellls Discussed findings with patient. Consistent with bacterial vaginosis. We will discharge on Flagyl. close follow-up with PMD Diagnosis - bacterial vaginosis Stable and discharged home with prescriptions for Rx flagyl. Instructed to followup with PMD. Return to ED if symptoms recur or worsen Labs Test 12/21/17 01:10 Urine Color Pale yellow Urine Appearance Clear Urine pH 7 (4.5-8.0) Urine Specific [place] 1.010 (1.005-1.035) Urine Protein Negative (NEGATIVE) Urine Glucose (UA) Negative (NEGATIVE) Urine Ketones Negative (NEGATIVE) Urine Blood Negative (NEGATIVE) Urine Nitrite Negative (NEGATIVE) Urine Bilirubin Negative (NEGATIVE) Urine Urobilinogen Normal MG/DL (0.0-1.0) Urine Leukocyte Esterase Negative (NEGATIVE) Urine HCG, Qualitative Negative (NEGATIVE) Last Vital Signs Date Time Temp Pulse Resp B/P (MAP) Pulse Ox O2 Delivery O2 Flow Rate FiO2 12/21/17 02:35 36.53580 80 16 118/74 100 Room Air 207.9 Status: improved Disposition: HOME, SELF-CARE Condition: Stable Scripts Metronidazole* (FLAGYL*) 500 Mg Tablet 500 MG ORAL THREE TIMES A DAY, #21 TAB Prov: Carlos Carlisle MD 12/21/17 Patient Instructions: Bacterial Vaginosis, Innv-uw-Eori Carlos Carlisle MD Dec 21, 2017 02:54
== END | disposition home or self-care (01) ==
LOC: EMR 01:17
DX: N76.0 Acute vaginitis (principal); Z88.2 Allergy status to sulfonamides
CPT/HCPCS: 81003; 81025; 87210; 99283

== ENCOUNTER 2018-05-29 22:00 | Emergency (ER) | payer MEDICAID ==
[~2018-05-29] VITALS: Ht 165.1 cm; Wt 83.0 kg
[2018-05-29 22:04] VITALS: BP 116/74
--- NOTE | 2018-05-29 22:10 | NUR ---
ED Nurse Note: Patient presents with complaints of right abdominal pain since 12/02. patient reports no other symptoms. PAtient admits to taking new psych medication within the last 2 hours.
[2018-05-29] MEDS ORDERED: LEXAPRO10 MG ORAL (22:12)
[2018-05-29] MEDS ORDERED: ZYPREXA2.5 MG ORAL (22:12)
--- NOTE | 2018-05-29 22:44 | Emergency Room Report ---
History of Present Illness General Chief Complaint: Abdominal Pain Source: Patient Present Illness HPI This is a 28-year-old female with a history of scoliosis with surgery. She presents with chief complaint of right lower quadrant pain. Onset was acute and occurred about 2-3 hours prior to arrival. Pain is sharp. No radiation. Pain is 8 out of 10. No relief with Advil. Nothing made it better. Nothing made it worse. Never had this problem before. No urinary complaint. No hematuria. Allergies: Coded Allergies: No Known Allergies (Unverified , 05/29/18) Patient History Past Medical History: see triage record, old chart reviewed, psych hx Past Surgical History: other Pertinent Family History: none Social History: Denies: smoking Last Menstrual Period: mar Now: No : 3 Para: 0 Immunizations: other Reviewed Nursing Documentation: PMH: Agreed; PSxH: Agreed Nursing Documentation-PMH History Of Psychiatric Problem: Yes - depression, anxiety Review of Systems Eye: Denies: eye pain, blurred vision ENT: Denies: ear pain, nose congestion, throat swelling Respiratory: Denies: cough, shortness of breath Cardiovascular: Denies: chest pain, palpitations Gastrointestinal: Reports: abdominal pain; Denies: diarrhea, nausea, vomiting Musculoskeletal: Denies: back pain, joint pain Skin: Denies: rash Neurological: Denies: headache, numbness Endocrine: Denies: increased thirst, increased urine Hematologic/Lymphatic: Denies: easy bruising All Other Systems: negative except mentioned in HPI Physical Exam Vital Signs Date Time Temp Pulse Resp B/P (MAP) Pulse Ox O2 Delivery O2 Flow Rate FiO2 05/29/18 22:04 98.1 72 16 116/74 96 Room Air vitals normal Sp02 EP Interpretation: reviewed, normal General Appearance: well appearing, no apparent distress, alert Head: normocephalic, atraumatic Eyes: bilateral eye PERRL, bilateral eye EOMI ENT: hearing grossly normal, normal pharynx Neck: full range of motion, supple, no meningismus Respiratory: chest non-tender, lungs clear, normal breath sounds Cardiovascular #1: regular rate, rhythm, no murmur Gastrointestinal: normal bowel sounds, non tender, no mass, no organomegaly, no bruit, non-distended Musculoskeletal: back normal, gait/station normal, normal range of motion Psychiatric: mood/affect normal Skin: warm/dry Medical Decision Making Diagnostic Impression: Primary Impression: Abdominal pain Qualified Codes: R10.31 - Right lower quadrant pain Additional Impression: Ovarian cyst Qualified Codes: N83.201 - Unspecified ovarian cyst, right side ER Course Patient presents with right lower quadrant abdominal pain. She does have functional ovarian cyst on the right. This may be causing the pain. Appendix normal. Patient felt better now. We'll discharge home. Lab Results Impression labs normal CT/MRI/US Diagnostic Results CT/MRI/US Diagnostic Results : Imaging Test Ordered: CT abdomen Impression Read by radiologist. Limited because of hardware. Appendix normal. Functional right ovarian cyst. Last Vital Signs Date Time Temp Pulse Resp B/P (MAP) Pulse Ox O2 Delivery O2 Flow Rate FiO2 05/29/18 22:04 72 16 Room Air 05/29/18 22:04 98.1 116/74 96 Status: improved Disposition: HOME, SELF-CARE Condition: Stable Scripts Ibuprofen* (MOTRIN*) 600 Mg Tablet 600 MG ORAL THREE TIMES A DAY, #30 TAB 0 Refills Prov: Brad Archibald MD 05/30/18 Patient Instructions: Abdominal Pain, Adult Additional Instructions: Follow-up with your DrCarmel in 2 to 3 days. Return if symptom worsen. Brad Archibald MD May 29, 2018 22:44
[2018-05-29] MEDS ORDERED: Morphine Sulfate 4mg/ml Inj (IV/IM USE ONLY) IVP ONE (22:45)
[2018-05-29] MEDS ORDERED: Ketorolac 30mg Inj IV ONE (22:45)
[2018-05-29 23:27] LABS: ANION GAP 7 mmol/L (5-15); BLOOD UREA NITROGEN 9 mg/dL (7-18); CALCIUM 8.7 MG/DL (8.5-10.1); CARBON DIOXIDE 28 MMOL/L (21-32); CHLORIDE 102 MMOL/L (98-107); CREATININE 0.7 MG/DL (0.55-1.30); POTASSIUM 3.6 MMOL/L (3.5-5.1); SODIUM 137 MMOL/L (136-145)
[2018-05-29 23:27] LABS: APPEARANCE,URINE CLEAR; BILIRUBIN, URINE NEGATIVE (NEGATIVE); COLOR,URINE PALE YELLOW; GLUCOSE, URINE (UA) NEGATIVE (NEGATIVE); KETONES,URINE NEGATIVE (NEGATIVE); LEUKOCYTE ESTERASE ,URINE NEGATIVE (NEGATIVE); NITRITE,URINE NEGATIVE (NEGATIVE); PH,URINE 6 (4.5-8.0); PROTEIN,URINE NEGATIVE (NEGATIVE); UROBILINOGEN,URINE NORMAL MG/DL (0.0-1.0)
[2018-05-29 23:30] LABS: BASOPHILS % (AUTO) 1.3 % (0.0-2.0); EOSINOPHILS % (AUTO) 0.6 % (0.0-3.0); HEMATOCRIT 40.9 % (37.0-47.0); HEMOGLOBIN 14.4 G/DL (12.0-16.0); LYMPHOCYTES % (AUTO) 30.7 % (20.0-45.0); MEAN CORPUSCULAR VOLUME 93 FL (80-99); MONOCYTES % (AUTO) 6.9 % (1.0-10.0); NEUTROPHILS % (AUTO) 60.5 % (45.0-75.0); PLATELET COUNT 260 K/UL (150-450); RED BLOOD COUNT 4.39 M/UL (4.20-5.40); RED CELL DISTRIBUTION WIDTH 11.3 % (11.6-14.8); WHITE BLOOD COUNT 9.3 K/UL (4.8-10.8)
[2018-05-29 23:32] LABS: ALANINE AMINOTRANSFERASE 25 U/L (12-78); ALBUMIN 3.8 G/DL (3.4-5.0); ALBUMIN/GLOBULIN RATIO 1.1 (1.0-2.7); ALKALINE PHOSPHATASE 54 U/L (46-116); ASPARTATE AMINO TRANSFERASE 17 U/L (15-37); BILIRUBIN,TOTAL 0.2 MG/DL (0.2-1.0)
--- NOTE | 2018-05-29 23:57 | NUR ---
ED Nurse Note: Patient is back from cT and is resting calmly, has no complaints of pain nor discomfort. vital signs stable.
[2018-05-29 23:58] VITALS: BP 132/81
--- NOTE | 2018-05-30 00:18 | NUR ---
ED Nurse Note: PT c/o anxiety, states she takes zyprexa 2.5 mg daily, ERMD notified.
[2018-05-30 00:30] VITALS: BP 132/81
--- NOTE | 2018-05-30 00:30 | NUR ---
ED Nurse Note: Patient discharged brandon MORGAN,.
[2018-05-30] MEDS ORDERED: IBUPROFEN600 MG ORAL (01:00)
--- NOTE | 2018-05-30 15:02 | Diagnostic Imaging Report ---
Indication: Abdominal pain Technique: Continuous helical transaxial imaging of the abdomen and pelvis was obtained from the lung bases to the pubic symphysis. No intravenous contrast was administered. Coronal 2-D reformats were also obtained. Automatic Exposure Control was utilized. Total Dose length Product (DLP): 948.[address] Dose Index Volume (CTDIvol): 17.73 mGy Comparison: none Findings: There is extensive spinal hardware consisting of fusion nishant and multiple pedicle screws are demonstrated throughout the visualized thoracic and lumbar spine. There is a scoliosis of the lumbar spine and thoracic spine convex to the right within the thoracic spine and convex to the left within the lumbar spine. The resultant streak artifact significantly limits evaluation. The lung bases are clear. There is suggestion of a small hiatal hernia. No obvious hydronephrosis or nephrolithiasis identified. No obvious free fluid, free air or bowel obstruction identified. The appendix is seen and appears normal. The uterus is seen. Both ovaries noted. The urinary bladder is unremarkable. Gallbladder is grossly unremarkable. IMPRESSION: No acute findings appreciated. Limited evaluation due to streak artifact from extensive spinal fusion. Scoliosis noted. Small hiatal hernia. [facility] has communicated the preliminary results to the Emergency Department. Their findings are largely concordant with this report. The CT scanner at [facility] is accredited by the [employer] and the scans are performed using dose optimization techniques as appropriate to a performed exam including Automatic Exposure control.
== END 2018-05-30 04:16 | disposition home or self-care (01) ==
LOC: EMR 22:48
DX: R10.31 Right lower quadrant pain (principal); N83.201 Unspecified ovarian cyst, right side; K44.9 Diaphragmatic hernia without obstruction or gangrene
CPT/HCPCS: 36415; 74176; 80053; 81003; 81025; 83690; 85025; 96361; 96374; 96375; 99284; J1885; J2270; J2405

== ENCOUNTER 2018-10-16 23:25 | Emergency (ER) | payer SELFPAY ==
[~2018-10-16] VITALS: Ht 172.7 cm; Wt 77.1 kg
[~2018-10-16 23:25] MED LIST changes: +LEXAPRO10 MG ORAL; +ZYPREXA2.5 MG ORAL
[2018-10-16 23:45] VITALS: BP 110/75
--- NOTE | 2018-10-16 23:47 | NUR ---
ED Nurse Note: Pt ambulated to ED from home c/o abdominal pain x1day.
--- NOTE | 2018-10-17 00:19 | Emergency Room Report ---
History of Present Illness General Chief Complaint: Abdominal Pain Source: Patient Present Illness HPI This is a 28-year-old female with history of bipolar. She presents with chief complaint of feeling nauseous. Onset today. She said that she is taking a special diet. She is only eating cereal all day. Feeling little nauseous. No fever chills. She said abdominal pain but no localization. No urinary complaint. Denies any diarrhea. No vomiting. Allergies: Coded Allergies: No Known Allergies (Unverified , 05/29/18) Patient History Past Medical History: see triage record, old chart reviewed, psych hx Past Surgical History: none Pertinent Family History: none Social History: Denies: smoking Last Menstrual Period: unknown Now: No Immunizations: other Reviewed Nursing Documentation: PMH: Agreed; PSxH: Agreed Nursing Documentation-PMH History Of Psychiatric Problem: Yes - bipolar Review of Systems Eye: Denies: eye pain, blurred vision ENT: Denies: ear pain, nose congestion, throat swelling Respiratory: Denies: cough, shortness of breath Cardiovascular: Denies: chest pain, palpitations Gastrointestinal: Reports: abdominal pain, nausea; Denies: diarrhea, vomiting Musculoskeletal: Denies: back pain, joint pain Skin: Denies: rash Neurological: Denies: headache, numbness Endocrine: Denies: increased thirst, increased urine Hematologic/Lymphatic: Denies: easy bruising All Other Systems: negative except mentioned in HPI Physical Exam Vital Signs Date Time Temp Pulse Resp B/P (MAP) Pulse Ox O2 Delivery O2 Flow Rate FiO2 10/16/18 23:39 98.1 71 16 107/70 (82) 98 Room Air Vitals normal Sp02 EP Interpretation: reviewed, normal General Appearance: well appearing, no apparent distress, alert Head: normocephalic, atraumatic Eyes: bilateral eye PERRL, bilateral eye EOMI ENT: hearing grossly normal, normal pharynx Neck: full range of motion, supple, no meningismus Respiratory: chest non-tender, lungs clear, normal breath sounds Cardiovascular #1: regular rate, rhythm, no murmur Gastrointestinal: normal bowel sounds, non tender, no mass, no organomegaly, no bruit, non-distended Musculoskeletal: back normal, gait/station normal, normal range of motion Neurologic: alert, oriented x3 Psychiatric: other - flat affect Skin: warm/dry Medical Decision Making Diagnostic Impression: Primary Impression: Nausea alone ER Course Patient presents with chief lien of nausea. No evidence of any acute abdomen. She is tolerating p.o. here. Abdominal exam is benign. She has no pain. Eating drinking here. Will discharge home. Last Vital Signs Date Time Temp Pulse Resp B/P (MAP) Pulse Ox O2 Delivery O2 Flow Rate FiO2 10/16/18 23:39 98.1 71 16 107/70 (82) 98 Room Air Status: improved Disposition: HOME, SELF-CARE Condition: Stable Referrals: NOT CHOSEN IPA/,REFERRING (PCP) Additional Instructions: Eat regularly. Follow up with your Dr. in 7 days. Return if worse. Brad Archibald MD Oct 17, 2018 00:19
== END 2018-10-17 00:31 | disposition home or self-care (01) ==
LOC: EMR 23:49
DX: R11.0 Nausea (principal); R10.9 Unspecified abdominal pain
CPT/HCPCS: 99282

== ENCOUNTER 2018-10-17 09:27 | Emergency (ER) | payer SELFPAY ==
[~2018-10-17] VITALS: Ht 167.6 cm; Wt 81.6 kg
--- NOTE | 2018-10-17 09:39 | NUR ---
ED Nurse Note: Patient walked into ED c/o she wants her urine to be checked for , she states "I have been waking up in the middle of the night feeling agitated, feels dry at the back of my head." patient is alert awake x4 ambulatory steady gait, breathing unlabored and even, skin is warm to touch.
[2018-10-17 09:40] VITALS: BP 115/61
[2018-10-17] MEDS ORDERED: DiphenhydrAMINE 50mg/ml Inj IVP ONE (09:45)
[2018-10-17] MEDS ORDERED: Metoclopramide 10mg/2ml Inj IVP ONE (09:45)
--- NOTE | 2018-10-17 09:52 | Emergency Room Report ---
History of Present Illness General Chief Complaint: General Complaint Source: Patient Present Illness HPI Patient presents with several complaints. She has been waking in the night for 1 week with anxiety and anger. She denies suicidal or homicidal ideation. She stopped taking her Zyprexa and Lexapro yesterday. (See further, she actually is on Geodon and stopped this yesterday.) Second problem is that she believes she is . She missed her menstruation this month. She denies breast tenderness, morning sickness or polyuria. She also denies dysuria. Third problem is she has a headache. Occipital rated 6/10. She has had headaches like this before. She believes she is dehydrated and believes an IV will help her with a headache. The patient denies drugs or alcohol. Allergies: Coded Allergies: No Known Allergies (Unverified , 05/29/18) Patient History Past Medical History: see triage record Social History: Denies: smoking, alcohol use, drug use Social History Narrative This with mother and sister Now: No - I missed one period, I dont know if Im : 0 Reviewed Nursing Documentation: PMH: Agreed; PSxH: Agreed Nursing Documentation-PMH Past Medical History: No History, Except For Review of Systems All Other Systems: negative except mentioned in HPI Physical Exam Vital Signs Date Time Temp Pulse Resp B/P (MAP) Pulse Ox O2 Delivery O2 Flow Rate FiO2 10/17/18 09:31 98.2 82 15 109/62 (78) 96 Room Air Sp02 EP Interpretation: reviewed, normal General Appearance: well appearing, no apparent distress, GCS 15 Head: normocephalic, atraumatic Eyes: bilateral eye normal inspection, bilateral eye PERRL, bilateral eye EOMI ENT: moist mucus membranes Neck: supple Respiratory: lungs clear, normal breath sounds Cardiovascular #1: regular rate, rhythm Cardiovascular #2: 2+ radial (R) Gastrointestinal: normal inspection, normal bowel sounds, non tender, no mass, non-distended Genitourinary: no CVA tenderness Musculoskeletal: back normal, gait/station normal, normal range of motion Neurologic: alert, oriented x3, grossly normal Psychiatric: no suicidal/homicidal ideation, depressed affect Skin: normal inspection, warm/dry Medical Decision Making Diagnostic Impression: Primary Impression: Irregular menses Additional Impressions: Headache Qualified Codes: R51 - Headache Dehydration ER Course Patient presents with 3 main complaints. We need to exclude at this time. In addition the headache will be treated with Reglan and Benadryl. Labs will be obtained to exclude electrolyte abnormalities with consideration of exacerbation of schizoaffective disorder. She denies suicidality at this time. Labs remarkable for negative test. CBC and CMP essentially unremarkable. Tox screen negative. Discussed results with patient. Headache is resolved. She is smiling and agrees to continue Geodon. She states that if she is not doing well she will return. She plans to have outpatient follow-up with her psychiatrist. Also discussed the need for barrier contraception or other forms unless she wants to have children. Patient improved and stable for outpatient observation and treatment. Laboratory Tests Test 10/17/18 09:38 10/17/18 10:04 Urine Color Pale yellow Urine Appearance Clear Urine pH 7 (4.5-8.0) Urine Specific [place] 1.010 (1.005-1.035) Urine Protein Negative (NEGATIVE) Urine Glucose (UA) Negative (NEGATIVE) Urine Ketones Negative (NEGATIVE) Urine Blood 1+ (NEGATIVE) H Urine Nitrite Negative (NEGATIVE) Urine Bilirubin Negative (NEGATIVE) Urine Urobilinogen Normal MG/DL (0.0-1.0) Urine Leukocyte Esterase 1+ (NEGATIVE) H Urine RBC 0-2 /HPF (0 - 2) Urine WBC 2-4 /HPF (0 - 2) Urine Squamous Epithelial Cells Few /LPF (NONE/OCC) Urine Bacteria Few /HPF (NONE) Urine HCG, Qualitative Negative (NEGATIVE) Urine Opiates Screen Negative (NEGATIVE) Urine Barbiturates Screen Negative (NEGATIVE) Phencyclidine (PCP) Screen Negative (NEGATIVE) Urine Amphetamines Screen Negative (NEGATIVE) Urine Benzodiazepines Screen Negative (NEGATIVE) Urine Cocaine Screen Negative (NEGATIVE) Urine Marijuana (THC) Screen Negative (NEGATIVE) White Blood Count 6.7 K/UL (4.8-10.8) Red Blood Count 4.71 M/UL (4.20-5.40) Hemoglobin 15.2 G/DL (12.0-16.0) Hematocrit 43.3 % (37.0-47.0) Mean Corpuscular Volume 92 FL (80-99) Mean Corpuscular Hemoglobin 32.2 PG (27.0-31.0) H Mean Corpuscular Hemoglobin Concent 35.0 G/DL (32.0-36.0) Red Cell Distribution Width 11.2 % (11.6-14.8) L Platelet Count 291 K/UL (150-450) Mean Platelet Volume 5.2 FL (6.5-10.1) L Neutrophils (%) (Auto) 71.7 % (45.0-75.0) Lymphocytes (%) (Auto) 21.3 % (20.0-45.0) Monocytes (%) (Auto) 5.9 % (1.0-10.0) Eosinophils (%) (Auto) 0.3 % (0.0-3.0) Basophils (%) (Auto) 0.9 % (0.0-2.0) Sodium Level 142 MMOL/L (136-145) Potassium Level 3.9 MMOL/L (3.5-5.1) Chloride Level 105 MMOL/L (98-107) Carbon Dioxide Level 27 MMOL/L (21-32) Anion Gap 10 mmol/L (5-15) Blood Urea Nitrogen 13 mg/dL (7-18) Creatinine 0.8 MG/DL (0.55-1.30) Estimate Glomerular Filtration Rate > 60 mL/min (>60) Glucose Level 94 MG/DL (74-106) Calcium Level 9.6 MG/DL (8.5-10.1) Total Bilirubin 0.4 MG/DL (0.2-1.0) Aspartate Amino Transferase (AST) 18 U/L (15-37) Alanine Aminotransferase (ALT) 21 U/L (12-78) Alkaline Phosphatase 48 U/L (46-116) Total Protein 8.2 G/DL (6.4-8.2) Albumin 3.9 G/DL (3.4-5.0) Globulin 4.3 g/dL Albumin/Globulin Ratio 0.9 (1.0-2.7) L Salicylates Level 1.7 ug/mL (2.8-20) L Acetaminophen Level < 2 MCG/ML (10-30) L Serum Alcohol < 3 mg/dL Last Vital Signs Date Time Temp Pulse Resp B/P (MAP) Pulse Ox O2 Delivery O2 Flow Rate FiO2 10/17/18 12:41 98.2 16 115/61 99 Room Air 10/17/18 09:41 75 Status: improved Disposition: HOME, SELF-CARE Condition: Improved Referrals: NOT CHOSEN IPA/MD,REFERRING (PCP) Arnold Mahmood MD Oct 17, 2018 09:52
[2018-10-17 10:05] LABS: APPEARANCE,URINE CLEAR; BILIRUBIN, URINE NEGATIVE (NEGATIVE); COLOR,URINE PALE YELLOW; GLUCOSE, URINE (UA) NEGATIVE (NEGATIVE); KETONES,URINE NEGATIVE (NEGATIVE); LEUKOCYTE ESTERASE ,URINE 1+ (NEGATIVE); NITRITE,URINE NEGATIVE (NEGATIVE); PH,URINE 7 (4.5-8.0); PROTEIN,URINE NEGATIVE (NEGATIVE); UROBILINOGEN,URINE NORMAL MG/DL (0.0-1.0)
[2018-10-17 10:14] LABS: BASOPHILS % (AUTO) 0.9 % (0.0-2.0); EOSINOPHILS % (AUTO) 0.3 % (0.0-3.0); HEMATOCRIT 43.3 % (37.0-47.0); HEMOGLOBIN 15.2 G/DL (12.0-16.0); LYMPHOCYTES % (AUTO) 21.3 % (20.0-45.0); MEAN CORPUSCULAR VOLUME 92 FL (80-99); MONOCYTES % (AUTO) 5.9 % (1.0-10.0); NEUTROPHILS % (AUTO) 71.7 % (45.0-75.0); PLATELET COUNT 291 K/UL (150-450); RED BLOOD COUNT 4.71 M/UL (4.20-5.40); RED CELL DISTRIBUTION WIDTH 11.2 % (11.6-14.8); WHITE BLOOD COUNT 6.7 K/UL (4.8-10.8)
[2018-10-17 10:31] LABS: ANION GAP 10 mmol/L (5-15); BLOOD UREA NITROGEN 13 mg/dL (7-18); CALCIUM 9.6 MG/DL (8.5-10.1); CARBON DIOXIDE 27 MMOL/L (21-32); CHLORIDE 105 MMOL/L (98-107); CREATININE 0.8 MG/DL (0.55-1.30); POTASSIUM 3.9 MMOL/L (3.5-5.1); SODIUM 142 MMOL/L (136-145)
[2018-10-17 10:33] LABS: ALANINE AMINOTRANSFERASE 21 U/L (12-78); ALBUMIN 3.9 G/DL (3.4-5.0); ALBUMIN/GLOBULIN RATIO 0.9 (1.0-2.7); ALKALINE PHOSPHATASE 48 U/L (46-116); ASPARTATE AMINO TRANSFERASE 18 U/L (15-37); BILIRUBIN,TOTAL 0.4 MG/DL (0.2-1.0)
--- NOTE | 2018-10-17 11:00 | NUR ---
ED Nurse Note: sandwich and juice provided Dr. Mahmood is ok for the patient to eat
[2018-10-17 12:41] VITALS: BP 115/61
--- NOTE | 2018-10-17 12:41 | NUR ---
ER DISCHARGE NOTE: Patient is cleared to be discharged per ERMD DR UGALDE, pt is aox4, on room air, with stable vital signs. pt was given dc and prescription instructions, pt was able to verbalize understanding, pt id band and iv site removed without complications. pt is able to ambulate with steady gait. pt took all belongings.
== END 2018-10-17 12:41 | disposition home or self-care (01) ==
LOC: EMR 09:41
DX: R51 Headache (principal); N92.6 Irregular menstruation, unspecified; E86.0 Dehydration; F41.9 Anxiety disorder, unspecified; R45.1 Restlessness and agitation
CPT/HCPCS: 36415; 80053; 80307; 81003; 81025; 85025; 96361; 96374; 96375; 99284; G0480; J1200; J2765; 80329

== ENCOUNTER 2018-10-22 15:04 | Emergency (ER) | payer SELFPAY ==
[~2018-10-22] VITALS: Ht 165.1 cm; Wt 80.7 kg
[2018-10-22] MEDS ORDERED: GEODON40 MG ORAL (15:16)
--- NOTE | 2018-10-22 15:35 | Emergency Room Report ---
History of Present Illness General Chief Complaint: Behavioral Complaint Source: Patient Present Illness HPI 28-year-old female with history of depression anxiety was recently here a few days ago for same symptoms here again with her mom saying that she refuses to take her antipsychotics and antidepressants as they make her feel weird. Patient is willing to voluntarily go into a psychiatric facility for treatment. Patient was recently in custodial few weeks ago and was on suicide watch however she denies all SI and HI today. Patient reports in the past week she has not had any suicidal ideation nor any suicidal plans. Patient denies chest pain, shortness of breath, palpitation, difficulty sleeping, change of appetite, and all other associated symptoms patient is currently on Geodon however refuses to take it Allergies: Coded Allergies: No Known Allergies (Unverified , 05/29/18) Patient History Past Medical History: see triage record Past Surgical History: unable to obtain Pertinent Family History: none Last Menstrual Period: 10/20/18 Now: No Immunizations: UTD Reviewed Nursing Documentation: PMH: Agreed; PSxH: Agreed Nursing Documentation-PMH Past Medical History: No History, Except For Review of Systems All Other Systems: negative except mentioned in HPI Physical Exam Vital Signs Date Time Temp Pulse Resp B/P (MAP) Pulse Ox O2 Delivery O2 Flow Rate FiO2 10/22/18 15:10 98.1 86 17 104/72 (83) 99 Room Air Sp02 EP Interpretation: reviewed, normal General Appearance: normal inspection, well appearing, no apparent distress, alert, GCS 15 Head: normocephalic, atraumatic Eyes: bilateral eye normal inspection, bilateral eye PERRL ENT: normal ENT inspection, hearing grossly normal, normal pharynx Neck: normal inspection, full range of motion, supple Respiratory: normal inspection, chest non-tender, lungs clear, normal breath sounds, no wheezing Cardiovascular #1: normal inspection, regular rate, rhythm, no edema, no murmur Gastrointestinal: normal inspection, soft Rectal: deferred Genitourinary: no CVA tenderness Neurologic: normal inspection, alert, oriented x3 Psychiatric: judgement/insight normal, depressed affect Suicide Risk Assessment: Suicidal Ideation: No Had intent to initiate attempt: No Pt's plan for suicide attempt: No Has means to complete attempt: No Skin: cyanosis, no rash, palpation normal Lymphatic: normal inspection, no adenopathy Medical Decision Making PA Attestation All my diagnosis and treatment plans were reviewed ad discussed with my supervising physician Dr. Frederick Diagnostic Impression: Primary Impression: Depression ER Course 28-year-old female with history of depression anxiety was recently here a few days ago for same symptoms here again with her mom saying that she refuses to take her antipsychotics and antidepressants as they make her feel weird. Patient is willing to voluntarily go into a psychiatric facility for treatment. Patient was recently in custodial few weeks ago and was on suicide watch however she denies all SI and HI today. Patient reports in the past week she has not had any suicidal ideation nor any suicidal plans. Patient denies chest pain, shortness of breath, palpitation, difficulty sleeping, change of appetite, and all other associated symptoms patient is currently on Geodon however refuses to take it. Ddx considered but are not limited to: generalized anxiety disorder, panic attack, depression with psycotic featurs, bipolar disorder, drug overdose Vital signs: are WNL, pt. is afebrile H&PE are most consistent with: Depression ORDERS: none required at this time, the diagnosis is clinical ED INTERVENTIONS: None required at this time. DISCHARGE: At this time pt. is stable for d/c to home. Will provide printed patient care instructions, and any necessary prescriptions. Care plan and follow up instructions have been discussed with the patient prior to discharge. At this time patient has no suicidal nor homicidal ideation and is willing to voluntarily check into psychiatric facility I gave her a list of possible facilities that she can go to. Also highly advised to follow with her regular psychiatrist and proceeding to take her medication. Last Vital Signs Date Time Temp Pulse Resp B/P (MAP) Pulse Ox O2 Delivery O2 Flow Rate FiO2 10/22/18 15:10 98.1 86 17 104/72 (83) 99 Room Air Disposition: HOME, SELF-CARE Condition: Stable Patient Instructions: Depression, Adult, Self-Destructive Behavior Additional Instructions: Follow-up with a primary care provider also you need to see a psychiatrist a list of mental health facilities to check into and counselor given to at this point in you can go to any of these facilities voluntarily contact him prior to arrival if suicidal or homicidal ideation return to the emergency room Claire Vu Oct 22, 2018 15:35
--- NOTE | 2018-10-22 15:40 | NUR ---
ED Nurse Note: pt walked in to ED with mom due to feeling depressed for couple days. pt has a meds at home but did not take it. denies SI/HI. denies hearing voices and seeing things. AAO x4. respirations even and non-labored noted. will wait for the further order.
[2018-10-22 15:41] VITALS: BP 104/72
--- NOTE | 2018-10-22 15:45 | NUR ---
ER DISCHARGE NOTE: Patient is cleared to be discharged per ERMD with mom, pt is aox4, on room air, with stable vital signs. pt was given dc instructions, pt was able to verbalize understanding, pt id band removed. pt is able to ambulate with steady gait. pt took all belongings.
== END 2018-10-22 15:47 | disposition home or self-care (01) ==
LOC: EMR 15:31
DX: F32.9 Major depressive disorder, single episode, unspecified (principal); F41.9 Anxiety disorder, unspecified
CPT/HCPCS: 99282

== ENCOUNTER 2018-12-18 04:01 | Emergency (ER) | payer SELFPAY ==
[~2018-12-18] VITALS: Ht 165.1 cm; Wt 78.5 kg
[~2018-12-18 04:01] MED LIST changes: +GEODON40 MG ORAL
[2018-12-18 04:10] VITALS: BP 100/68
--- NOTE | 2018-12-18 04:13 | NUR ---
ED Nurse Note: Pt walked in c/o nightmares, pt states she had a bad dream last night, denies taking any sleeping aid medication. denies pain nor any other medical complaints. pt AA&ox4, gcs=15, skin warm and dry, resp even and unlabored on RA, ambulatory w/steady gait, vss. will cont monitor.
--- NOTE | 2018-12-18 04:18 | Emergency Room Report ---
History of Present Illness General Chief Complaint: General Complaint Source: Patient Present Illness HPI This is a 28-year-old female with a history of bipolar but on a medication. She presents with chief complaint of nightmare. She had a bad dream and woke up and cannot fall back to sleep. She felt scared. Better now. Denies any other complaint. Never had this problem before. Not suicidal or homicidal. Denies any drug use. Allergies: Coded Allergies: SULFA (SULFONAMIDE ANTIBIOTICS) (Verified Allergy, Unknown, Rash, 12/18/18) Patient History Past Medical History: see triage record, old chart reviewed Past Surgical History: none Pertinent Family History: none Social History: Denies: smoking Last Menstrual Period: unk Now: No Immunizations: other Reviewed Nursing Documentation: PMH: Agreed; PSxH: Agreed Nursing Documentation-PMH Past Medical History: No Stated History Review of Systems Eye: Denies: eye pain, blurred vision ENT: Denies: ear pain, nose congestion, throat swelling Respiratory: Denies: cough, shortness of breath Cardiovascular: Denies: chest pain, palpitations Gastrointestinal: Denies: abdominal pain, diarrhea, nausea, vomiting Musculoskeletal: Denies: back pain, joint pain Skin: Denies: rash Neurological: Denies: headache, numbness Endocrine: Denies: increased thirst, increased urine Hematologic/Lymphatic: Denies: easy bruising All Other Systems: negative except mentioned in HPI Physical Exam Vital Signs Date Time Temp Pulse Resp B/P (MAP) Pulse Ox O2 Delivery O2 Flow Rate FiO2 12/18/18 04:06 97.9 66 18 100/68 (79) 98 Room Air Vitals normal Sp02 EP Interpretation: reviewed, normal General Appearance: well appearing, no apparent distress, alert Head: normocephalic, atraumatic Eyes: bilateral eye PERRL, bilateral eye EOMI ENT: hearing grossly normal, normal pharynx Neck: full range of motion, supple, no meningismus Respiratory: chest non-tender, lungs clear, normal breath sounds Cardiovascular #1: regular rate, rhythm, no murmur Gastrointestinal: normal bowel sounds, non tender, no mass, no organomegaly, no bruit, non-distended Musculoskeletal: back normal, gait/station normal, normal range of motion Psychiatric: mood/affect normal Medical Decision Making Diagnostic Impression: Primary Impression: Nightmare ER Course Patient presents with chief complaint of nightmare. No suicidal thoughts homicidal thought. She is better now. No criteria for 5150. Patient reassured and discharged home. Last Vital Signs Date Time Temp Pulse Resp B/P (MAP) Pulse Ox O2 Delivery O2 Flow Rate FiO2 12/18/18 04:12 66 18 Room Air 12/18/18 04:10 97.9 100/68 98 Status: improved Disposition: HOME, SELF-CARE Condition: Stable Additional Instructions: Follow-up with your doctor in 7 days. Return if worse. Brad Archibald MD Dec 18, 2018 04:18
--- NOTE | 2018-12-18 04:24 | NUR ---
ED Nurse Note: pt cleared to be d/c per ERMD, pt discharge and aftercare instruction provided, pt advised to follow up with pcp, pt veralized understanding and left w/ all belongings, education done. vss. pt reports she will be walking home, pt states she lives close to the hospital.
[2018-12-18 04:25] VITALS: BP 100/68
== END 2018-12-18 04:25 | disposition home or self-care (01) ==
LOC: EMR 04:15
DX: F51.5 Nightmare disorder (principal); F31.9 Bipolar disorder, unspecified; Z88.2 Allergy status to sulfonamides
CPT/HCPCS: 99281

== ENCOUNTER 2018-12-25 17:46 | Emergency (ER) | payer SELFPAY ==
[~2018-12-25] VITALS: Ht 165.1 cm; Wt 77.1 kg
[2018-12-25 18:04] VITALS: BP 104/69
--- NOTE | 2018-12-25 18:10 | NUR ---
ED Nurse Note: Patient walked into ED from home c/o nausea and headache today. patient is alert awake x4 ambulatory steady gait, breathing unlabored and even
--- NOTE | 2018-12-25 18:33 | NUR ---
ED Nurse Note: UA SENT TO LAB
--- NOTE | 2018-12-25 18:37 | Emergency Room Report ---
History of Present Illness General Chief Complaint: Headache Source: Patient Present Illness HPI 28-year-old female presents to the emergency department complaining of 5 out of 10 severity epigastric abdominal pain that she describes as a burning sensation typically approximately 15 minutes after she consumes any food. Patient reports she does experience some nausea she denies vomiting, abdominal tenderness, constipation, diarrhea, blood in the stool or black tarry stools. She reports some indigestion and belching. Patient denies suspicion of . She denies fevers or chills. She also reports a dull 3 out of 10 in severity generalized headache since this morning she denies trauma or fall she denies visual changes or imbalance. She denies photophobia, neck pain or stiffness. Patient denies extremity weakness, imbalance or vertigo. Patient initially mentioned dizziness however she states she did not really experience the symptom she was confusing it with generalized frontal headache and nausea. Denies sudden onset of her headache. Allergies: Coded Allergies: SULFA (SULFONAMIDE ANTIBIOTICS) (Verified Allergy, Unknown, Rash, 12/18/18) Patient History Past Medical History: see triage record Past Surgical History: none Pertinent Family History: none Last Menstrual Period: 8-15 Now: No Reviewed Nursing Documentation: PMH: Agreed; PSxH: Agreed Nursing Documentation-PMH Past Medical History: No History, Except For History Of Psychiatric Problem: Yes Review of Systems All Other Systems: negative except mentioned in HPI Physical Exam Vital Signs Date Time Temp Pulse Resp B/P (MAP) Pulse Ox O2 Delivery O2 Flow Rate FiO2 12/25/18 18:04 97.9 78 16 104/69 (81) 98 Room Air Sp02 EP Interpretation: reviewed, normal General Appearance: no apparent distress, alert, GCS 15, non-toxic Head: normocephalic, atraumatic Eyes: bilateral eye normal inspection, bilateral eye PERRL, bilateral eye EOMI ENT: hearing grossly normal, normal voice Neck: full range of motion, no meningismus Respiratory: lungs clear, normal breath sounds, speaking full sentences Cardiovascular #1: regular rate, rhythm Gastrointestinal: normal bowel sounds, non tender, soft, non-distended, no guarding Genitourinary: normal inspection, no CVA tenderness Musculoskeletal: back normal, gait/station normal, normal range of motion, non- tender Neurologic: alert, oriented x3, responsive, motor strength/tone normal, sensory intact, speech normal, grossly normal Psychiatric: judgement/insight normal, other - Flat affect. Skin: warm/dry, well hydrated Lymphatic: no adenopathy Medical Decision Making PA Attestation Dr. Ocampo Is my supervising Physician whom patient management has been discussed with. Diagnostic Impression: Primary Impression: Abdominal pain Qualified Codes: R10.13 - Epigastric pain Additional Impressions: Gastritis Qualified Codes: K29.70 - Gastritis, unspecified, without bleeding Headache Qualified Codes: G44.099 - Other trigeminal autonomic cephalgias (tac), not intractable ER Course 28-year-old female presents to the emergency department complaining of 5 out of 10 severity epigastric abdominal pain that she describes as a burning sensation typically approximately 15 minutes after she consumes any food. Patient reports she does experience some nausea she denies vomiting, abdominal tenderness, constipation, diarrhea, blood in the stool or black tarry stools. She reports some indigestion and belching. Patient denies suspicion of . She denies fevers or chills. She also reports a dull 3 out of 10 in severity generalized headache since this morning she denies trauma or fall she denies visual changes or imbalance. She denies photophobia, neck pain or stiffness. Ddx considered but are not limited to GE, colitis, acute appy, SBO, H.pylori, Gastritis, PNA, pericarditis, , UTI, dehydration just to name a few. Vital signs: pt. is afebrile, H&PE are most consistent with Gastritis - no evidence to suggest acute abdomen on physical exam. Patient has no focal neurological deficits and physical exam findings do not suspicion for acute cranial etiology at this time. ---previous chart reviewed. pt. w. hx of bipolar, and frequent ED visits. I have had this patient several times in the past. presents often with vague complaints in NAD. PT. last seen here 7 days ago for having a nightmare. ORDERS: -UA: WNL -Urine HCG:Negative ED INTERVENTIONS: -Mylanta PO -Lidocaine PO -Pepcid PO -Reglan PO - for FALK and nausea - Tylenol PO -I do not identify an emergent condition at this time. With current presentation , pt. is stable for close outpatient follow up and conservative treatment. D/ w pt. to return promptly to ED with worsening or new symptoms.- Pt. verbalizes her understanding and agreement with proposed treatment plan.proposed treatment plan. DISCHARGE: At this time pt. is stable for d/c to home. Will provide printed patient care instructions, and any necessary prescriptions. Care plan and follow up instructions have been discussed with the patient prior to discharge. Labs Test 12/25/18 18:25 Urine Color Yellow Urine Appearance Clear Urine pH 5 (4.5-8.0) Urine Specific [place] 1.025 (1.005-1.035) Urine Protein Negative (NEGATIVE) Urine Glucose (UA) Negative (NEGATIVE) Urine Ketones Negative (NEGATIVE) Urine Blood Negative (NEGATIVE) Urine Nitrite Negative (NEGATIVE) Urine Bilirubin Negative (NEGATIVE) Urine Urobilinogen Normal MG/DL (0.0-1.0) Urine Leukocyte Esterase 3+ (NEGATIVE) Urine RBC 0-2 /HPF (0 - 2) Urine WBC 5-10 /HPF (0 - 2) Urine Squamous Epithelial Cells Few /LPF (NONE/OCC) Urine Bacteria Few /HPF (NONE) Urine HCG, Qualitative Negative (NEGATIVE) Last Vital Signs Date Time Temp Pulse Resp B/P (MAP) Pulse Ox O2 Delivery O2 Flow Rate FiO2 12/25/18 18:04 97.9 78 16 104/69 (81) 98 Room Air Disposition: HOME, SELF-CARE Condition: Stable Scripts Acetaminophen* (TYLENOL EXTRA STRENGTH*) 500 Mg Tablet 500 MG ORAL Q6H PRN for For Headache, #10 TAB 0 Refills Prov: Amy Gold 12/25/18 Ranitidine Hcl* (ZANTAC*) 150 Mg Tablet 150 MG ORAL TWICE A DAY for 10 Days, #20 TAB Prov: Amy Gold 12/25/18 Patient Instructions: Gastritis, Pediatric Additional Instructions: Take medications as directed. Follow up with a Primary Care Provider in 3-5 days, even if your symptoms have resolved. --Please review list of primary care clinics, if you do not already have a primary care provider Return sooner to ED if new symptoms occur, or current symptoms become worse. - Please note that this Emergency Department Report was dictated using Everwisejewel hole rough opener technology software, occasionally this can lead to erroneous entry secondary to interpretation by the dictation equipment. Amy Gold Dec 25, 2018 18:37
[2018-12-25 18:41] LABS: APPEARANCE,URINE CLEAR; BILIRUBIN, URINE NEGATIVE (NEGATIVE); GLUCOSE, URINE (UA) NEGATIVE (NEGATIVE); KETONES,URINE NEGATIVE (NEGATIVE); LEUKOCYTE ESTERASE ,URINE 3+ (NEGATIVE); NITRITE,URINE NEGATIVE (NEGATIVE); PH,URINE 5 (4.5-8.0); PROTEIN,URINE NEGATIVE (NEGATIVE); UROBILINOGEN,URINE NORMAL MG/DL (0.0-1.0)
[2018-12-25 18:55] LABS: COLOR,URINE YELLOW
--- NOTE | 2018-12-25 19:14 | NUR ---
HAND-OFF: Report given to Emma MORGAN.
[2018-12-25] MEDS ORDERED: Lidocaine 2% Visc 15ml soln ORAL ONE (19:15)
[2018-12-25] MEDS ORDERED: Mylanta II UD 30ml ORAL ONE (19:15)
[2018-12-25] MEDS ORDERED: TYLENOL EXTRA500 MG ORAL (19:44)
[2018-12-25] MEDS ORDERED: ZANTAC150 MG ORAL (19:44)
[2018-12-25 20:15] VITALS: BP 110/70
--- NOTE | 2018-12-25 20:15 | NUR ---
ER DISCHARGE NOTE: Patient is cleared to be discharged per ERMD, pt is aox4, on room air, with stable vital signs. pt was given dc and prescription instructions, pt was able to verbalize understanding, pt id band removed without complications. pt is able to ambulate with steady gait. pt took all belongings.
== END 2018-12-25 20:15 | disposition home or self-care (01) ==
LOC: EMR 19:10
DX: K29.70 Gastritis, unspecified, without bleeding (principal); G44.099 Other trigeminal autonomic cephalgias (TAC), not intractable; Z88.2 Allergy status to sulfonamides; F31.9 Bipolar disorder, unspecified
CPT/HCPCS: 81003; 81025; 99283

== ENCOUNTER 2018-12-31 16:32 | Emergency (ER) | payer SELFPAY ==
[~2018-12-31] VITALS: Ht 165.1 cm; Wt 77.1 kg
[~2018-12-31 16:32] MED LIST changes: +ZANTAC150 MG ORAL
[2018-12-31 16:35] VITALS: BP 104/72
[2018-12-31] MEDS ORDERED: NKM (16:38)
--- NOTE | 2018-12-31 16:45 | NUR ---
ED Nurse Note: Pt came in due to dizziness x 1 hour. Denies vomiting but states she feels nauseous. Pt reports is currently on her menstrual period. AAO x4 and ambulatory with steady gait. Noted pt to be irritable.
--- NOTE | 2018-12-31 17:04 | NUR ---
ED Nurse Note: Pt refused IV fluids and Bryce was notified. Pt now c/o abd pain.
[2018-12-31 17:20] LABS: BASOPHILS % (AUTO) 1.1 % (0.0-2.0); EOSINOPHILS % (AUTO) 0.5 % (0.0-3.0); HEMOGLOBIN 14.9 G/DL (12.0-16.0); LYMPHOCYTES % (AUTO) 31.8 % (20.0-45.0); MEAN CORPUSCULAR VOLUME 88 FL (80-99); NEUTROPHILS % (AUTO) 58.6 % (45.0-75.0); PLATELET COUNT 306 K/UL (150-450); RED BLOOD COUNT 4.54 M/UL (4.20-5.40); RED CELL DISTRIBUTION WIDTH 10.1 % (11.6-14.8); WHITE BLOOD COUNT 7.5 K/UL (4.8-10.8)
[2018-12-31 17:23] LABS: APPEARANCE,URINE CLEAR; BILIRUBIN, URINE NEGATIVE (NEGATIVE); GLUCOSE, URINE (UA) NEGATIVE (NEGATIVE); KETONES,URINE 1+ (NEGATIVE); LEUKOCYTE ESTERASE ,URINE 1+ (NEGATIVE); NITRITE,URINE NEGATIVE (NEGATIVE); PH,URINE 5 (4.5-8.0); PROTEIN,URINE NEGATIVE (NEGATIVE); UROBILINOGEN,URINE 1 MG/DL (0.0-1.0)
[2018-12-31 17:24] LABS: INR 0.9 (0.9-1.1)
[2018-12-31 17:27] LABS: ANION GAP 8 mmol/L (5-15); BLOOD UREA NITROGEN 19 mg/dL (7-18); CALCIUM 9.5 MG/DL (8.5-10.1); CARBON DIOXIDE 29 MMOL/L (21-32); CHLORIDE 106 MMOL/L (98-107); CREATININE 0.7 MG/DL (0.55-1.30); POTASSIUM 3.8 MMOL/L (3.5-5.1); SODIUM 143 MMOL/L (136-145)
[2018-12-31 17:31] LABS: ALANINE AMINOTRANSFERASE 22 U/L (12-78); ALBUMIN/GLOBULIN RATIO 1.1 (1.0-2.7); ALKALINE PHOSPHATASE 51 U/L (46-116); ASPARTATE AMINO TRANSFERASE 20 U/L (15-37); BILIRUBIN,TOTAL 0.3 MG/DL (0.2-1.0)
[2018-12-31 17:32] LABS: COLOR,URINE YELLOW
[2018-12-31] MEDS ORDERED: Meclizine 25mg tab ORAL ONE (17:45)
[2018-12-31] MEDS ORDERED: VERTICALM25 MG ORAL (18:27)
[2018-12-31 18:41] VITALS: BP 117/88
--- NOTE | 2018-12-31 18:41 | NUR ---
ER DISCHARGE NOTE: Patient is cleared to be discharged per PA, pt is aox4, on room air, with stable vital signs. pt was given dc and prescription instructions, pt was able to verbalize understanding, pt id band and iv site removed without complications. pt is able to ambulate with steady gait. pt took all belongings.
--- NOTE | 2018-12-31 19:21 | Emergency Room Report ---
History of Present Illness General Chief Complaint: Dizziness Source: Patient, Medical Record Present Illness HPI Patient is a 28-year-old female presenting for dizziness which began today. She feels as if the room is spinning around her. She stats she is eating well and taking in plenty of fluids. She denies drug or alcohol use. She denies any symptoms including blurred vision, headache, nausea, vomiting, fever, chills, shortness of breath, palpitations, chest pain Allergies: Coded Allergies: SULFA (SULFONAMIDE ANTIBIOTICS) (Verified Allergy, Unknown, Rash, 12/18/18) Patient History Past Medical History: see triage record Pertinent Family History: none Last Menstrual Period: 12/28/18 Reviewed Nursing Documentation: PMH: Agreed; PSxH: Agreed Nursing Documentation-PMH Past Medical History: No History, Except For Review of Systems All Other Systems: negative except mentioned in HPI Physical Exam Vital Signs Date Time Temp Pulse Resp B/P (MAP) Pulse Ox O2 Delivery O2 Flow Rate FiO2 12/31/18 16:35 98.2 85 18 104/72 96 Room Air Sp02 EP Interpretation: reviewed, normal General Appearance: no apparent distress, alert, GCS 15, non-toxic Head: normocephalic, atraumatic Eyes: bilateral eye normal inspection, bilateral eye PERRL, bilateral eye EOMI ENT: hearing grossly normal, normal pharynx, no angioedema, normal voice Respiratory: chest non-tender, lungs clear, normal breath sounds, speaking full sentences Cardiovascular #1: regular rate, rhythm, no edema Musculoskeletal: back normal, gait/station normal, normal range of motion, non- tender Neurologic: alert, oriented x3, responsive, motor strength/tone normal, sensory intact, speech normal Psychiatric: judgement/insight normal, memory normal, mood/affect normal, no suicidal/homicidal ideation Skin: no rash Lymphatic: no adenopathy Medical Decision Making PA Attestation Dr. Retana is my supervising physician. Patient management was discussed with my supervising physician Diagnostic Impression: Primary Impression: Dizziness ER Course Patient is a 28-year-old female presenting for dizziness which began today. Differential diagnoses considered but not limited to: Benign positional vertigo , dehydration, positional hypotension, labyrinthitis, Mnire's disease PE: vitals stable. NAD PERRL. EOMI. No nystagmus RRR Lungs CTA bilat Labs including CBC, CMP, urinalysis, urine are essentially unremarkable EKG shows rate of 60 normal sinus rhythm Patient is given meclizine and states that she is feeling significantly better. She will be discharged home with prescription for meclizine and is told to follow-up with primary doctor as soon as possible. ER precautions are given Laboratory Tests Test 12/31/18 17:00 White Blood Count 7.5 K/UL (4.8-10.8) Red Blood Count 4.54 M/UL (4.20-5.40) Hemoglobin 14.9 G/DL (12.0-16.0) Hematocrit 40.0 % (37.0-47.0) Mean Corpuscular Volume 88 FL (80-99) Mean Corpuscular Hemoglobin 32.7 PG (27.0-31.0) H Mean Corpuscular Hemoglobin Concent 37.2 G/DL (32.0-36.0) H Red Cell Distribution Width 10.1 % (11.6-14.8) L Platelet Count 306 K/UL (150-450) Mean Platelet Volume 5.0 FL (6.5-10.1) L Neutrophils (%) (Auto) 58.6 % (45.0-75.0) Lymphocytes (%) (Auto) 31.8 % (20.0-45.0) Monocytes (%) (Auto) 8.0 % (1.0-10.0) Eosinophils (%) (Auto) 0.5 % (0.0-3.0) Basophils (%) (Auto) 1.1 % (0.0-2.0) Prothrombin Time 10.1 SEC (9.30-11.50) Prothrombin Time INR 0.9 (0.9-1.1) PTT 28 SEC (23-33) Urine Color Yellow Urine Appearance Clear Urine pH 5 (4.5-8.0) Urine Specific [place] 1.025 (1.005-1.035) Urine Protein Negative (NEGATIVE) Urine Glucose (UA) Negative (NEGATIVE) Urine Ketones 1+ (NEGATIVE) H Urine Blood 5+ (NEGATIVE) H Urine Nitrite Negative (NEGATIVE) Urine Bilirubin Negative (NEGATIVE) Urine Urobilinogen 1 MG/DL (0.0-1.0) H Urine Leukocyte Esterase 1+ (NEGATIVE) H Urine RBC 5-10 /HPF (0 - 2) H Urine WBC 2-4 /HPF (0 - 2) Urine Squamous Epithelial Cells Few /LPF (NONE/OCC) Urine Bacteria Few /HPF (NONE) Urine HCG, Qualitative Negative (NEGATIVE) Sodium Level 143 MMOL/L (136-145) Potassium Level 3.8 MMOL/L (3.5-5.1) Chloride Level 106 MMOL/L (98-107) Carbon Dioxide Level 29 MMOL/L (21-32) Anion Gap 8 mmol/L (5-15) Blood Urea Nitrogen 19 mg/dL (7-18) H Creatinine 0.7 MG/DL (0.55-1.30) Estimate Glomerular Filtration Rate > 60 mL/min (>60) Glucose Level 91 MG/DL (74-106) Calcium Level 9.5 MG/DL (8.5-10.1) Total Bilirubin 0.3 MG/DL (0.2-1.0) Aspartate Amino Transferase (AST) 20 U/L (15-37) Alanine Aminotransferase (ALT) 22 U/L (12-78) Alkaline Phosphatase 51 U/L (46-116) Total Protein 7.8 G/DL (6.4-8.2) Albumin 4.0 G/DL (3.4-5.0) Globulin 3.8 g/dL Albumin/Globulin Ratio 1.1 (1.0-2.7) Lipase 343 U/L (73-393) Lab Results Impression Unremarkable. Rhythm Strip Diag. Results EP Interpretation: yes Rate: 60 Rhythm: NSR PA Scribe Text EKG was reviewed and read with my supervising physician. No acute ST segment changes are seen. Normal rate and rhythm. No acute changes. Last Vital Signs Date Time Temp Pulse Resp B/P (MAP) Pulse Ox O2 Delivery O2 Flow Rate FiO2 12/31/18 18:41 98.6 79 20 117/88 100 Room Air Status: improved Disposition: HOME, SELF-CARE Condition: Improved Scripts Meclizine Hcl* (VERTICALM*) 25 Mg Tablet 25 MG ORAL THREE TIMES A DAY, #15 TAB Prov: ALYCIA MARQUEZ 12/31/18 Referrals: NOT CHOSEN IPA/MD,REFERRING (PCP) Patient Instructions: Dizziness Additional Instructions: I discussed my findings with the patient. All questions and concerns have been answered. Treatment and medication compliance have been addressed. I advised the patient that they need to follow up with Primary doctor within 48 hours. Return to ER if symptoms worsen, new symptoms arise, or if needed for any reason. Patient verbalized understanding of discharge instructions. ALYCIA MARQUEZ Dec 31, 2018 19:21
--- NOTE | 2019-01-01 11:44 | Cardiology Report ---
APPROVED REPORT EKG Measurement Heart [id number] Normal sinus rhythm with sinus arrhythmia Low voltage QRS Borderline ECG
== END 2018-12-31 18:41 | disposition home or self-care (01) ==
LOC: EMR 17:45
DX: R42 Dizziness and giddiness (principal)
CPT/HCPCS: 36415; 80053; 81003; 81025; 83690; 85025; 85610; 85730; 93005; 99283

== ENCOUNTER 2019-01-31 13:41 | Emergency (ER) | payer MEDICAID ==
[~2019-01-31] VITALS: Ht 165.1 cm; Wt 68.0 kg
[~2019-01-31 13:41] MED LIST changes: +VERTICALM25 MG ORAL
[2019-01-31 13:55] VITALS: BP 113/80
--- NOTE | 2019-01-31 13:55 | NUR ---
ED Nurse Note: PT AAOX4, VSS, WITH NO SIGN OF DISTRESS. PT WALKED IN TO ER C/O RIGHT ORBIT AND LEFT ARM BRUISING AFTER PUNCHING HERSELF. PT HAS HX OF SCHIZOPHRENIA AND BIPOLAR DISORDER - NO MEDICATIONS. PT DENIES SI/HI. PT'S MOTHER AT SIDE REQUESTING MENTAL HEALTH TREATMENT. MOTHER AWARE [facility] [place] [facility].
--- NOTE | 2019-01-31 14:02 | NUR ---
ED Nurse Note: PT IS IN BED RESTING AT THIS TIME.
--- NOTE | 2019-01-31 14:42 | Emergency Room Report ---
History of Present Illness General Chief Complaint: General Complaint Source: Patient Present Illness HPI 28-year-old female presents to the emergency department complaining of bruising and swelling to the right orbit and cheekbone in addition to the left forearm x1 day. Patient presents with her mother who explains that the patient was acutely agitated last night and was observed to be punching herself. Both mother and patient described having history of bpolar disorder and schizophrenia. Mother states that patient has been noncompliant with medications due to no relief of her symptoms. Patient states that Viri was not working for her so she stopped taking it. Last dosage was 4 days ago per patient and mother. Patient denies SI or HI she describes visual and auditory hallucinations of " people "that are "teasing her and making fun of her "patient denies any direct instructions to cause self-harm or harm to others from these hallucinated persons. Mother states she has been on several anti- psychiatric medications. Mother reports multiple 72-hour hold in the past for noncompliance with medications. No previous suicide attempts. The patient is reporting nightmares almost every night. Mother states that symptoms only seem to occur in the middle the night. Also reports moderate depression and decrease in social activities. PT. denies pain, abdominal pain, fevers, chills, drug use, verbal/physical/or sexual abuse. The mother and pt. endorse seeing a psychiatrist regularly who has not been adjusting medications despite increase in symptoms. Mother is requesting referral to alternate psychiatric clinic. Mother reports that she dispenses medications, and pt. states she wants to have control of taking her medications on her own. Pt. reports she is waking up in the middle of the night because of the " people" and she is so frustrated that they don't let her sleep and she wants them to " go away" Pt. denies intentions of hurting herself. Mother endorses that pt. has had previous episodes of banging her head on the mead and punching herself x 2 years. Denies OD, or cutting. Pt. reports the hallucinations sometimes come during the day but not often. Pt. requesting alternate medication from [facility]. Allergies: Coded Allergies: SULFA (SULFONAMIDE ANTIBIOTICS) (Verified Allergy, Unknown, Rash, 12/18/18) Patient History Past Medical History: see triage record, psych hx Past Surgical History: none Pertinent Family History: none Last Menstrual Period: 9/17/19 Now: No Reviewed Nursing Documentation: PMH: Agreed; PSxH: Agreed Nursing Documentation-PMH Past Medical History: No History, Except For History Of Psychiatric Problem: Yes - BIPOLAR, SCHIZOPHRENIA Review of Systems All Other Systems: negative except mentioned in HPI Physical Exam Vital Signs Date Time Temp Pulse Resp B/P (MAP) Pulse Ox O2 Delivery O2 Flow Rate FiO2 01/31/19 13:44 98.2 91 17 113/80 (91) 99 Room Air Medical Decision Making PA Attestation Dr. Ocampo Is my supervising Physician whom patient management has been discussed with. Diagnostic Impression: Primary Impression: Facial contusion Qualified Codes: S00.83XA - Contusion of other part of head, initial encounter Additional Impressions: Sleep-related hallucinations History of bipolar disorder Noncompliance with medication treatment due to underuse of medication ER Course 28-year-old female presents to the emergency department complaining of bruising and swelling to the right orbit and cheekbone in addition to the left forearm x1 day. Patient presents with her mother who explains that the patient was acutely agitated last night and was observed to be punching herself. Both mother and patient described having history of bpolar disorder and schizophrenia. Mother states that patient has been noncompliant with medications due to no relief of her symptoms. Patient states that Geodon was not working for her so she stopped taking it. Last dosage was 4 days ago per patient and mother. Patient denies SI or HI she describes visual and auditory hallucinations of " people "that are "teasing her and making fun of her "patient denies any direct instructions to cause self-harm or harm to others from these hallucinated persons. Mother states she has been on several anti- psychiatric medications. Mother reports multiple 72-hour hold in the past for noncompliance with medications. No previous suicide attempts. The patient is reporting nightmares almost every night. Mother states that symptoms only seem to occur in the middle the night. Also reports moderate depression and decrease in social activities. PT. denies pain, abdominal pain, fevers, chills, drug use, verbal/physical/or sexual abuse. The mother and pt. endorse seeing a psychiatrist regularly who has not been adjusting medications despite increase in symptoms. Mother is requesting referral to alternate psychiatric clinic. Mother reports that she dispenses medications, and pt. states she wants to have control of taking her medications on her own. Pt. reports she is waking up in the middle of the night because of the " people" and she is so frustrated that they don't let her sleep and she wants them to " go away" Pt. denies intentions of hurting herself. Mother endorses that pt. has had previous episodes of banging her head on the mead and punching herself x 2 years. Denies OD, or cutting. Pt. reports the hallucinations sometimes come during the day but not often. Pt. requesting alternate medication from Viri. Ddx considered but are not limited to [ ] Vital signs: are WNL, pt. is afebrile H&PE are most consistent with: 1.Facial and forearm contusions, no obvious deformities, no localized bony ttp. 2.Auditory and visual hallucinations, acute exacerbation of bi-polar and schizophrenia secondary to self d/c from previous medication. ORDERS: none required at this time, the diagnosis is clinical ED INTERVENTIONS: -Zyprexa 5mg PO D/w mother and pt. follow up plan. with strict ED return precautions. DISCHARGE: At this time pt. is stable for d/c to home with mother with instructions to be seen at [facility] urgent care for continuation of medication management within 48 hours. Will provide printed patient care instructions, and any necessary prescriptions. Care plan and follow up instructions have been discussed with the patient prior to discharge. Last Vital Signs Date Time Temp Pulse Resp B/P (MAP) Pulse Ox O2 Delivery O2 Flow Rate FiO2 01/31/19 13:55 95 17 Room Air 01/31/19 13:55 98.2 113/80 99 Disposition: HOME, SELF-CARE Condition: Stable Scripts Acetaminophen* (TYLENOL EXTRA STRENGTH*) 500 Mg Tablet 500 MG ORAL Q6H, #20 TAB 0 Refills Prov: Amy Gold 01/31/19 Olanzapine* (ZYPREXA*) 5 Mg Tablet 5 MG ORAL QHS for Bipolar/insomnia, #8 TAB Start taking 5mg once a day before bedtime. If insomnia persists may increase to 10mg after 3 days. Prov: Amy Gold 01/31/19 Referrals: NOT CHOSEN IPA/MD,REFERRING (PCP) Patient Instructions: Insomnia Additional Instructions: Take medications as directed. Do not take more than 10mg of Zyprexa per day Follow up with a Mental Health Specialist/ Psychiatrist within 2 days, even if your symptoms have resolved. --Please review [facility] resource information provided Return sooner to ED if new symptoms occur, or current symptoms become worse. - Please note that this Emergency Department Report was dictated using YouCastrmounted police officer technology software, occasionally this can lead to erroneous entry secondary to interpretation by the dictation equipment. Amy Gold Jan 31, 2019 14:42
[2019-01-31] MEDS ORDERED: TYLENOL EXTRA500 MG ORAL (15:15)
[2019-01-31] MEDS ORDERED: ZYPREXA5 MG ORAL (15:15)
[2019-01-31 15:31] VITALS: BP 113/80
--- NOTE | 2019-01-31 15:31 | NUR ---
ER DISCHARGE NOTE: Patient is cleared to be discharged per ERMD, pt is aox4, on room air, with stable vital signs. pt was given dc and prescription instructions, pt was able to verbalize understanding, pt id band and iv site removed without complications. pt is able to ambulate with steady gait. pt took all belongings.
== END 2019-01-31 15:31 | disposition home or self-care (01) ==
LOC: EMR 14:10
DX: S00.83XA Contusion of other part of head, initial encounter (principal); F23 Brief psychotic disorder; F31.9 Bipolar disorder, unspecified; S50.12XA Contusion of left forearm, initial encounter; Z88.2 Allergy status to sulfonamides; Z91.14 Patient's other noncompliance with medication regimen; Y33.XXXA Other specified events, undetermined intent, initial encounter; Y92.9 Unspecified place or not applicable
CPT/HCPCS: 99282

== ENCOUNTER 2019-02-25 07:45 | Emergency (ER) | payer SELFPAY ==
[~2019-02-25] VITALS: Ht 165.1 cm; Wt 70.3 kg
[~2019-02-25 07:45] MED LIST changes: +ZYPREXA5 MG ORAL
--- NOTE | 2019-02-25 07:57 | NUR ---
ED Nurse Note: Pt came in from home for chlamydia treatment. When asked about symptoms, pt asked for breakfast then answered " I felt burning, like Chlamydia, I could not sleep". Vital signs stable at this time. Will cont to monitor.
--- NOTE | 2019-02-25 08:05 | Emergency Room Report ---
History of Present Illness General Chief Complaint: Female Urogenital Problems Source: Medical Record Present Illness HPI Patient is a 28-year-old female who presents after increased vaginal discharge as well as increased lower abdominal discomfort. She states that she had previously had gonorrhea. She thinks that she may have gonorrhea or chlamydia currently. She denies any fever. She had not been vomiting. She denies any prior abdominal surgeries. She does report having some low back surgery in the past. Denies any . Allergies: Coded Allergies: SULFA (SULFONAMIDE ANTIBIOTICS) (Verified Allergy, Unknown, Rash, 12/18/18) Patient History Past Medical History: see triage record Now: No Reviewed Nursing Documentation: PMH: Agreed; PSxH: Agreed Nursing Documentation-PMH Past Medical History: No History, Except For Review of Systems All Other Systems: negative except mentioned in HPI Physical Exam Vital Signs Date Time Temp Pulse Resp B/P (MAP) Pulse Ox O2 Delivery O2 Flow Rate FiO2 02/25/19 07:48 97.9 80 15 100/62 (75) 96 Room Air Sp02 EP Interpretation: reviewed, normal General Appearance: normal inspection, well appearing, no apparent distress, alert, GCS 15 Head: atraumatic ENT: normal ENT inspection, hearing grossly normal, normal voice Neck: normal inspection, full range of motion, supple, no bony tend Respiratory: normal inspection, lungs clear, normal breath sounds, no respiratory distress, no retraction, no wheezing Cardiovascular #1: regular rate, rhythm, no edema Gastrointestinal: normal inspection, normal bowel sounds, non tender, soft, no guarding, no hernia Genitourinary: no CVA tenderness Musculoskeletal: normal inspection, back normal, normal range of motion Neurologic: normal inspection, alert, oriented x3, responsive, weigher operator III-XII nml as tested, speech normal Psychiatric: normal inspection, judgement/insight normal, mood/affect normal Medical Decision Making Diagnostic Impression: Primary Impression: Urethritis ER Course Patient presented for possible STD. Differential diagnosis include was not limited to gonorrhea, chlamydia, urinary tract infection, among others. Given patient's history she will be empirically treated for gonorrhea chlamydia. Patient was advised outpatient STD testing. She was given Rocephin IM. She is given prescription for doxycycline. Advised to follow-up with primary care physician for recheck. Labs Test 02/25/19 07:51 Urine Color Pale yellow Urine Appearance Clear Urine pH 7 (4.5-8.0) Urine Specific [place] 1.005 (1.005-1.035) Urine Protein Negative (NEGATIVE) Urine Glucose (UA) Negative (NEGATIVE) Urine Ketones Negative (NEGATIVE) Urine Blood Negative (NEGATIVE) Urine Nitrite Negative (NEGATIVE) Urine Bilirubin Negative (NEGATIVE) Urine Urobilinogen Normal MG/DL (0.0-1.0) Urine Leukocyte Esterase 2+ (NEGATIVE) Urine RBC 0 /HPF (0 - 2) Urine WBC 0-2 /HPF (0 - 2) Urine Squamous Epithelial Cells Occasional /LPF Urine Bacteria Occasional /HPF (NONE) Urine HCG, Qualitative Negative (NEGATIVE) Last Vital Signs Date Time Temp Pulse Resp B/P (MAP) Pulse Ox O2 Delivery O2 Flow Rate FiO2 02/25/19 07:48 97.9 80 15 100/62 (75) 96 Room Air Status: improved Disposition: HOME, SELF-CARE Condition: Stable Scripts Doxycycline Monohydrate* (DOXYCYCLINE MONOHYDRATE*) 100 Mg Capsule 100 MG ORAL Q12H, #14 CAP 0 Refills Prov: Kye Frederick MD 02/25/19 Referrals: NOT CHOSEN UHNTER/,REFERRING (PCP) Kye Frederick MD Feb 25, 2019 08:05
[2019-02-25] MEDS ORDERED: DOXYCYCLINE MO100 MG ORAL (08:07)
[2019-02-25] MEDS ORDERED: Lidocaine 1% MPF 10mg/ml 5ml INJ ONE (08:15)
[2019-02-25 08:25] LABS: APPEARANCE,URINE CLEAR; BILIRUBIN, URINE NEGATIVE (NEGATIVE); COLOR,URINE PALE YELLOW; GLUCOSE, URINE (UA) NEGATIVE (NEGATIVE); KETONES,URINE NEGATIVE (NEGATIVE); LEUKOCYTE ESTERASE ,URINE 2+ (NEGATIVE); NITRITE,URINE NEGATIVE (NEGATIVE); PH,URINE 7 (4.5-8.0); PROTEIN,URINE NEGATIVE (NEGATIVE); UROBILINOGEN,URINE NORMAL MG/DL (0.0-1.0)
[2019-02-25 08:52] VITALS: BP 99/74
[2019-02-25 08:54] VITALS: BP 99/74
--- NOTE | 2019-02-25 08:54 | NUR ---
ER DISCHARGE NOTE: Patient is cleared to be discharged per ERMD, pt is aox4, on room air, with stable vital signs. pt was given dc and prescription instructions, pt was able to verbalize understanding, pt id band removed. pt is able to ambulate with steady gait. pt took all belongings.
== END 2019-02-25 08:54 | disposition home or self-care (01) ==
LOC: EMR 07:58
DX: N34.2 Other urethritis (principal); Z88.2 Allergy status to sulfonamides
CPT/HCPCS: 81003; 81025; 96372; 96374; 99284; J0696

== ENCOUNTER 2019-02-26 20:26 | Emergency (ER) | payer SELFPAY ==
[~2019-02-26 20:26] MED LIST changes: +DOXYCYCLINE MO100 MG ORAL
--- NOTE | 2019-02-26 20:44 | NUR ---
ED Nurse Note: Patient not in waiting room.
--- NOTE | 2019-02-26 21:44 | NUR ---
ED Nurse Note: PAtient called, not in waiting room.
--- NOTE | 2019-02-26 22:41 | NUR ---
ED Nurse Note: Patient called, not in watiing room.
== END 2019-02-26 22:50 | disposition left against medical advice (07) ==
LOC: EMR 20:50
DX: Z53.21 Procedure and treatment not carried out due to patient leaving prior to being seen by health care provider (principal)

== ENCOUNTER 2019-04-14 05:42 | Emergency (ER) | payer SELFPAY ==
[~2019-04-14] VITALS: Ht 165.1 cm; Wt 68.0 kg
--- NOTE | 2019-04-14 05:52 | NUR ---
ED Nurse Note: pt presents to ED requesting an STD check because she has been noticing vaginal discharge that is thick white with a foul smelling odor and burning pain for the past few days. pt denies taking anything CIRCUS HAND for symptoms or any hematuria or blood in her discharge. Addendum: 04/14/19 at 0558 by QLE pt reports there is a "stinging" px when she urinates and also px when she does not that is in her suprapubic and genitalia regions.
[2019-04-14 05:54] VITALS: BP 94/59
--- NOTE | 2019-04-14 06:02 | Emergency Room Report ---
History of Present Illness General Chief Complaint: Female Urogenital Problems Source: Patient, Medical Record Present Illness HPI Is a 28-year-old female with no past medical history. She does have mild developmental delay. She presents with chief complaint of a discharge and burning sensation when she urinated. Onset this morning. No fever chills but no nausea no vomiting. She wanted an STD check. She is not having any sexual activity. No douching. Similar symptom in the past. She been treated for bacterial vaginosis multiple times in the past. Allergies: Coded Allergies: SULFA (SULFONAMIDE ANTIBIOTICS) (Verified Allergy, Unknown, Rash, 12/18/18) Patient History Past Medical History: see triage record, old chart reviewed Past Surgical History: none Pertinent Family History: none Social History: Denies: smoking Now: No Immunizations: other Reviewed Nursing Documentation: PMH: Agreed; PSxH: Agreed Nursing Documentation-PMH Past Medical History: No History, Except For Review of Systems Eye: Denies: eye pain, blurred vision ENT: Denies: ear pain, nose congestion, throat swelling Respiratory: Denies: cough, shortness of breath Cardiovascular: Denies: chest pain, palpitations Gastrointestinal: Denies: abdominal pain, diarrhea, nausea, vomiting Genitourinary: Reports: discharge, dysuria Musculoskeletal: Denies: back pain, joint pain Skin: Denies: rash Neurological: Denies: headache, numbness Endocrine: Denies: increased thirst, increased urine Hematologic/Lymphatic: Denies: easy bruising All Other Systems: negative except mentioned in HPI Physical Exam Vital Signs Date Time Temp Pulse Resp B/P (MAP) Pulse Ox O2 Delivery O2 Flow Rate FiO2 04/14/19 05:45 97.3 88 18 94/59 (71) 98 Room Air Vitals unremarkable Sp02 EP Interpretation: reviewed, normal General Appearance: well appearing, no apparent distress, alert Head: normocephalic, atraumatic Eyes: bilateral eye PERRL, bilateral eye EOMI ENT: hearing grossly normal, normal pharynx Neck: full range of motion, supple, no meningismus Respiratory: chest non-tender, lungs clear, normal breath sounds Cardiovascular #1: regular rate, rhythm, no murmur Gastrointestinal: normal bowel sounds, non tender, no mass, no organomegaly, no bruit, non-distended Musculoskeletal: back normal, normal range of motion, gait/station normal Psychiatric: mood/affect normal Medical Decision Making Diagnostic Impression: Primary Impression: Bacterial vaginosis ER Course Presents with a slight discharge and dysuria. She states she is not sexually active. She has several previous visit for bacterial vaginosis. We will go ahead and treat her for that. No evidence of UTI. No evidence of torsion. Will discharge home with reassurance. Last Vital Signs Date Time Temp Pulse Resp B/P (MAP) Pulse Ox O2 Delivery O2 Flow Rate FiO2 04/14/19 05:54 97.3 82 18 94/59 98 Room Air Status: improved Disposition: HOME, SELF-CARE Condition: Stable Scripts Metronidazole* (FLAGYL*) 500 Mg Tablet 500 MG ORAL BID, #14 TAB Prov: Brad Archibald MD 04/14/19 Additional Instructions: Follow up with your doctor in 7 days for recheck. Return if worse. Brad Archibald MD Apr 14, 2019 06:02
[2019-04-14 06:13] LABS: APPEARANCE,URINE CLEAR; BILIRUBIN, URINE NEGATIVE (NEGATIVE); GLUCOSE, URINE (UA) NEGATIVE (NEGATIVE); KETONES,URINE NEGATIVE (NEGATIVE); LEUKOCYTE ESTERASE ,URINE 1+ (NEGATIVE); NITRITE,URINE NEGATIVE (NEGATIVE); PH,URINE 6 (4.5-8.0); PROTEIN,URINE 1+ (NEGATIVE); UROBILINOGEN,URINE 1 MG/DL (0.0-1.0)
[2019-04-14 06:17] LABS: COLOR,URINE YELLOW
[2019-04-14] MEDS ORDERED: METRONIDAZOLE500 MG ORAL (06:21)
[2019-04-14 06:25] VITALS: BP 94/59
== END 2019-04-14 06:25 | disposition home or self-care (01) ==
LOC: EMR 06:02
DX: N76.0 Acute vaginitis (principal); Z88.2 Allergy status to sulfonamides
CPT/HCPCS: 81003; 87086; 99283

== ENCOUNTER 2019-05-05 11:57 | Emergency (ER) | payer SELFPAY ==
[~2019-05-05] VITALS: Ht 165.1 cm; Wt 77.6 kg
[2019-05-05 12:05] VITALS: BP 102/73
--- NOTE | 2019-05-05 12:08 | NUR ---
ED Nurse Note: Pt walked in from home c/o burning during urination, vaginal itchiness and swelling since this morning. Respirations even and unlabored on room air. Vitals stable as documented. Urine sent down to lab.
--- NOTE | 2019-05-05 12:09 | NUR ---
ED Nurse Note: ED PA @ bedside
[2019-05-05] MEDS ORDERED: Fluconazole 100mg tab ORAL ONE (12:15)
--- NOTE | 2019-05-05 12:21 | Emergency Room Report ---
History of Present Illness General Chief Complaint: Female Urogenital Problems Source: Patient Present Illness HPI 28 YO female presents to the ED c/o itchy vaginal rash and d/c. She denies recent unprotected intercourse and denies recent abx. use. She denies abdominal pain. She denies external genital sores, lesions, swollen tender lymph nodes. She denies nausea, vomiting, fevers, chills or suspicion of . Patient would like to be treated for yeast as well as BV. Patient states she typically needs both. She denies vaginal bleeding. She denies dysuria, hematuria or frequency. She reports primary symptoms is persistent itching in the genital area. Allergies: Coded Allergies: SULFA (SULFONAMIDE ANTIBIOTICS) (Verified Allergy, Unknown, Rash, 12/18/18) Patient History Past Medical History: see triage record, psych hx Past Surgical History: none Pertinent Family History: none Last Menstrual Period: 05/04/19 Now: No Reviewed Nursing Documentation: PMH: Agreed; PSxH: Agreed Nursing Documentation-PMH Past Medical History: No Stated History Review of Systems All Other Systems: negative except mentioned in HPI Physical Exam Vital Signs Date Time Temp Pulse Resp B/P (MAP) Pulse Ox O2 Delivery O2 Flow Rate FiO2 05/05/19 11:59 97.5 88 16 99/73 (82) 97 Room Air Sp02 EP Interpretation: reviewed, normal General Appearance: no apparent distress, alert, GCS 15, non-toxic Head: normocephalic, atraumatic Eyes: bilateral eye normal inspection, bilateral eye PERRL ENT: hearing grossly normal, normal voice Neck: full range of motion Respiratory: lungs clear, normal breath sounds, speaking full sentences Cardiovascular #1: regular rate, rhythm Gastrointestinal: non tender, soft, non-distended, no guarding Rectal: deferred Genitourinary: normal inspection, no CVA tenderness, deferred - pelvic deferred by pt. Musculoskeletal: back normal, normal range of motion, gait/station normal, non- tender Neurologic: alert, motor strength/tone normal, oriented x3, sensory intact, responsive, speech normal Psychiatric: judgement/insight normal Skin: rash - subjective per pt. pelvic deferred. Lymphatic: no adenopathy Medical Decision Making PA Attestation Dr. Faulkner is my supervising Physician whom patient management has been discussed with. Diagnostic Impression: Primary Impression: Vaginitis and vulvovaginitis ER Course 28 YO female presents to the ED c/o itchy vaginal rash and d/c. She denies recent unprotected intercourse and denies recent abx. use. She denies abdominal pain. She denies external genital sores, lesions, swollen tender lymph nodes. She denies nausea, vomiting, fevers, chills or suspicion of . Patient would like to be treated for yeast as well as BV. Patient states she typically needs both. She denies vaginal bleeding. She denies dysuria, hematuria or frequency. She reports primary symptoms is persistent itching in the genital area. Ddx considered but are not limited to UTi , Pyelo, STI, Stone, Cystitis, vaginal laceration, vaginitis. Vital signs: are WNL, pt. is afebrile H& PE are most consistent with: Vaginitis ORDERS: Dx is clinical ED INTERVENTIONS: -Diflucan PO DISCHARGE: At this time pt. is stable for d/c to home. Will provide printed patient care instructions, and any necessary prescriptions. Care plan and follow up instructions have been discussed with the patient prior to discharge. discussed with the patient prior to discharge. Last Vital Signs Date Time Temp Pulse Resp B/P (MAP) Pulse Ox O2 Delivery O2 Flow Rate FiO2 05/05/19 11:59 97.5 88 16 99/73 (82) 97 Room Air Disposition: HOME, SELF-CARE Condition: Stable Scripts Metronidazole* (FLAGYL*) 500 Mg Tablet 500 MG ORAL BID for 7 Days, #14 TAB Prov: Amy Gold 05/05/19 Patient Instructions: Vaginitis Additional Instructions: Take medications as directed. Follow up with a RAILROAD MECHANIC within 3 days, even if your symptoms have resolved. * * Return sooner to ED if new symptoms occur, or current symptoms become worse. - Please note that this Emergency Department Report was dictated using [employer] scientist technology software, occasionally this can lead to erroneous entry secondary to interpretation by the dictation equipment. Amy Gold May 05, 2019 12:21
[2019-05-05] MEDS ORDERED: METRONIDAZOLE500 MG ORAL (12:23)
--- NOTE | 2019-05-05 12:35 | NUR ---
ER DISCHARGE NOTE:Patient is cleared to be discharged per ERMD, pt is aox4, on room air, with stable vital signs. pt was given dc and prescription instructions and able to verbalize understanding, pt id band removed. pt is able to ambulate with steady gait. pt taking all belongings.
[2019-05-05 12:36] VITALS: BP 105/78
== END 2019-05-05 12:38 | disposition home or self-care (01) ==
LOC: EMR 12:15
DX: N76.0 Acute vaginitis (principal); Z88.2 Allergy status to sulfonamides
CPT/HCPCS: 99282

== ENCOUNTER 2019-05-10 11:49 | Emergency (ER) | payer SELFPAY ==
[~2019-05-10] VITALS: Ht 165.1 cm; Wt 77.6 kg
[2019-05-10 11:56] VITALS: BP 99/66
--- NOTE | 2019-05-10 12:00 | NUR ---
ED Nurse Note: Pt ambulated into ED from [facility] abdominal pain x 2 days 12/02 and n/v. ERMD at bedside.
--- NOTE | 2019-05-10 12:05 | NUR ---
ED Nurse Note: ERMD at bedside
[2019-05-10 12:20] LABS: APPEARANCE,URINE CLEAR; BILIRUBIN, URINE NEGATIVE (NEGATIVE); COLOR,URINE PALE YELLOW; GLUCOSE, URINE (UA) NEGATIVE (NEGATIVE); KETONES,URINE NEGATIVE (NEGATIVE); LEUKOCYTE ESTERASE ,URINE 2+ (NEGATIVE); NITRITE,URINE NEGATIVE (NEGATIVE); PH,URINE 7 (4.5-8.0); PROTEIN,URINE NEGATIVE (NEGATIVE); UROBILINOGEN,URINE NORMAL MG/DL (0.0-1.0)
--- NOTE | 2019-05-10 12:28 | NUR ---
ED Nurse Note: Pt received all medications, tolerated well. No s/s of distress, vs in stable condition. Pt resting in bed
--- NOTE | 2019-05-10 12:41 | Emergency Room Report ---
History of Present Illness General Chief Complaint: Abdominal Pain Source: Patient Present Illness HPI 28-year-old female with history of unknown psychiatric disorder here complaining of abdominal pain, nausea vomiting x2 days. Patient was seen at [place] [facility] recently for vaginitis and given a prescription for Flagyl. Patient reports that she has been taking on empty stomach every day and feels abdominal pain and nausea after. Denies any urinary frequency and urgency at this time. Patient has not had follow-up with primary care provider. Appears to be anxious. Denies chest pain, shortness of breath, palpitation, vaginal discharge. Denies being sexually active. Allergies: Coded Allergies: SULFA (SULFONAMIDE ANTIBIOTICS) (Verified Allergy, Unknown, Rash, 12/18/18) Patient History Past Medical History: see triage record Past Surgical History: unable to obtain Pertinent Family History: none Last Menstrual Period: Apr 16, 2019 Now: No Immunizations: UTD Reviewed Nursing Documentation: PMH: Agreed; PSxH: Agreed Nursing Documentation-PMH Past Medical History: No History, Except For Review of Systems All Other Systems: negative except mentioned in HPI Physical Exam Vital Signs Date Time Temp Pulse Resp B/P (MAP) Pulse Ox O2 Delivery O2 Flow Rate FiO2 05/10/19 11:52 97.9 90 17 99/66 (77) 96 Room Air Sp02 EP Interpretation: reviewed, normal General Appearance: no apparent distress, alert, GCS 15, non-toxic Head: normocephalic, atraumatic Eyes: bilateral eye normal inspection, bilateral eye PERRL ENT: hearing grossly normal, normal pharynx, no angioedema, normal voice Neck: full range of motion, supple/symm/no masses Respiratory: chest non-tender, lungs clear, normal breath sounds, speaking full sentences Cardiovascular #1: regular rate, rhythm, no edema, no murmur Gastrointestinal: normal bowel sounds, non tender, soft, non-distended, no guarding, no rebound Rectal: deferred Genitourinary: no CVA tenderness Musculoskeletal: back normal Neurologic: alert, motor strength/tone normal, oriented x3, sensory intact, responsive, speech normal Psychiatric: judgement/insight normal, anxious Skin: no rash Lymphatic: no adenopathy Medical Decision Making PA Attestation All my diagnosis and treatment plans were reviewed ad discussed with my supervising physician Dr. Faulkner Diagnostic Impression: Primary Impression: Nausea and vomiting ER Course 28-year-old female with history of unknown psychiatric disorder here complaining of abdominal pain, nausea vomiting x2 days. Patient was seen at [place] [facility] recently for vaginitis and given a prescription for Flagyl. Patient reports that she has been taking on empty stomach every day and feels abdominal pain and nausea after. Denies any urinary frequency and urgency at this time. Patient has not had follow-up with primary care provider. Appears to be anxious. Denies chest pain, shortness of breath, palpitation, vaginal discharge. Denies being sexually active. Ddx considered but are not limited to: Nausea vomiting secondary to medication, , UTI, pyelonephritis, urinary incontinence, prolapsed bladder Vital signs: are WNL, pt. is afebrile H&PE are most consistent with: Nausea vomiting secondary to medication ORDERS: UA, urine cx, urine test, Zofran ED INTERVENTIONS: zofran DISCHARGE: At this time pt. is stable for d/c to home. Will provide printed patient care instructions, and any necessary prescriptions. Care plan and follow up instructions have been discussed with the patient prior to discharge. Patient take medication as directed, avoid taking Flagyl and empty stomach. Follow-up with primary care provider, if worsening symptoms return to emergency room. At this time no indication needed for blood tests as patient is nontender to palpation, reports that nausea and vomiting secondary to taking Flagyl and empty stomach. However to follow-up with primary care provider if symptoms continue Last Vital Signs Date Time Temp Pulse Resp B/P (MAP) Pulse Ox O2 Delivery O2 Flow Rate FiO2 05/10/19 11:52 97.9 90 17 99/66 (77) 96 Room Air Disposition: HOME, SELF-CARE Condition: Stable Scripts Ondansetron (Zofran) 4 Mg Tablet 4 MG ORAL Q6H PRN for Nausea & Vomiting, #10 TAB Prov: Claire Vu 05/10/19 Patient Instructions: Abdominal Pain, Adult, Nausea and Vomiting, Adult, Easy- to-Read Additional Instructions: Do not take your medication on empty stomach as it is the cause of your nausea and vomiting, take these nausea pills, drink lots of water, follow-up with your primary care provider. Claire Vu May 10, 2019 12:41
[2019-05-10] MEDS ORDERED: ZOFRAN4 M1 ORAL (12:42)
[2019-05-10 12:46] VITALS: BP 147/96
--- NOTE | 2019-05-10 12:46 | NUR ---
ER DISCHARGE NOTE: Patient is cleared to be discharged per ERMD, pt is aox4, on room air, D/C instructions and prescription given. Patient was able to verbalize understanding. ID band removed. pt is able to ambulate with steady gait. pt took all belongings.
== END 2019-05-10 12:46 | disposition home or self-care (01) ==
LOC: EMR 12:25
DX: R11.2 Nausea with vomiting, unspecified (principal); Z88.2 Allergy status to sulfonamides
CPT/HCPCS: 81003; 81025; 99282

== ENCOUNTER 2019-06-11 06:18 | Emergency (ER) | payer SELFPAY ==
[~2019-06-11 06:18] MED LIST changes: +ZOFRAN4 M1 ORAL
--- NOTE | 2019-06-11 06:21 | NUR ---
CALLED FOR TRIAGE; NOT IN WAITING ROOM.
--- NOTE | 2019-06-11 06:31 | NUR ---
ED Nurse Note: CALLED FOR TRIAGE; NOT IN WAITING ROOM.
--- NOTE | 2019-06-11 06:41 | NUR ---
ED Nurse Note: PATIENT NOT IN WAITING ROOM.
--- NOTE | 2019-06-11 07:38 | Emergency Room Report ---
History of Present Illness General Chief Complaint: To Be Triaged Present Illness Allergies: Coded Allergies: SULFA (SULFONAMIDE ANTIBIOTICS) (Verified Allergy, Unknown, Rash, 12/18/18) Medical Decision Making ER Course Patient was never brought into the department and was not seen Status: other Disposition: LEFT W/OUT BEING SEEN Condition: Unknown Isaiah Faulkner DO Jun 11, 2019 07:38
[2019-06-12] MEDS ORDERED: PHENAZOPYRIDIN200 MG ORAL (19:12)
[2019-06-12] MEDS ORDERED: NITROFURANTOIN100 M2 ORAL (19:12)
== END 2019-06-11 08:30 | disposition left against medical advice (07) ==
LOC: EMR 07:00
DX: Z53.21 Procedure and treatment not carried out due to patient leaving prior to being seen by health care provider (principal); Z88.2 Allergy status to sulfonamides

== ENCOUNTER 2019-06-12 18:03 | Emergency (ER) | payer SELFPAY ==
[~2019-06-12] VITALS: Ht 167.6 cm; Wt 80.7 kg
[2019-06-12 18:05] VITALS: BP 99/62
--- NOTE | 2019-06-12 18:05 | NUR ---
ED Nurse Note: PT AMBULATED TO ED ASKING FOR STD TESTING.
--- NOTE | 2019-06-12 18:16 | NUR ---
ED Nurse Note: URINE SPECIMEN SENT TO LAB
[2019-06-12 18:51] LABS: APPEARANCE,URINE CLEAR; BILIRUBIN, URINE NEGATIVE (NEGATIVE); COLOR,URINE PALE YELLOW; GLUCOSE, URINE (UA) NEGATIVE (NEGATIVE); KETONES,URINE NEGATIVE (NEGATIVE); LEUKOCYTE ESTERASE ,URINE NEGATIVE (NEGATIVE); NITRITE,URINE NEGATIVE (NEGATIVE); PH,URINE 8 (4.5-8.0); PROTEIN,URINE NEGATIVE (NEGATIVE); UROBILINOGEN,URINE NORMAL MG/DL (0.0-1.0)
--- NOTE | 2019-06-12 19:10 | Emergency Room Report ---
History of Present Illness General Chief Complaint: Female Urogenital Problems Source: Patient Present Illness HPI 29-year-old female with no significant past medical history here complaining of 2 days of dysuria. Denies fever and chills, nausea vomiting, flank pain. Denies being sexually active. Denies at this time. Has not taken medication for symptom relief. Allergies: Coded Allergies: SULFA (SULFONAMIDE ANTIBIOTICS) (Verified Allergy, Unknown, Rash, 12/18/18) Patient History Past Medical History: see triage record Past Surgical History: unable to obtain Pertinent Family History: unable to obtain Last Menstrual Period: 05/26/2019 Now: No Immunizations: UTD Reviewed Nursing Documentation: PMH: Agreed; PSxH: Agreed Nursing Documentation-PMH Past Medical History: No Stated History Review of Systems All Other Systems: negative except mentioned in HPI Physical Exam Vital Signs Date Time Temp Pulse Resp B/P (MAP) Pulse Ox O2 Delivery O2 Flow Rate FiO2 06/12/19 18:05 97.9 82 16 99/62 (74) 96 Room Air Sp02 EP Interpretation: reviewed, normal General Appearance: no apparent distress, alert, GCS 15, non-toxic Head: normocephalic, atraumatic Eyes: bilateral eye normal inspection, bilateral eye PERRL ENT: hearing grossly normal, normal pharynx, no angioedema, normal voice Neck: full range of motion, supple/symm/no masses Respiratory: chest non-tender, lungs clear, normal breath sounds, speaking full sentences Cardiovascular #1: regular rate, rhythm, no edema Gastrointestinal: non tender, soft Rectal: deferred Genitourinary: no CVA tenderness Neurologic: alert, motor strength/tone normal, oriented x3, sensory intact, responsive, speech normal Psychiatric: judgement/insight normal, memory normal, mood/affect normal, no suicidal/homicidal ideation Skin: no rash Lymphatic: no adenopathy Medical Decision Making PA Attestation All my diagnosis and treatment plans were reviewed ad discussed with my supervising physician Dr. Carlisle Diagnostic Impression: Primary Impression: Dysuria ER Course 29-year-old female with no significant past medical history here complaining of 2 days of dysuria. Denies fever and chills, nausea vomiting, flank pain. Denies being sexually active. Denies at this time. Has not taken medication for symptom relief. Ddx considered but are not limited to: UTI, pyelonephritis, urinary incontinence , prolapsed bladder Vital signs: are WNL, pt. is afebrile H&PE are most consistent with: Dysuria ORDERS: UA, urine cx, urine test, Macrobid for symptom relief, Pyridium ED INTERVENTIONS: None required at this time. DISCHARGE: At this time pt. is stable for d/c to home. Will provide printed patient care instructions, and any necessary prescriptions. Care plan and follow up instructions have been discussed with the patient prior to discharge. Patient to increase oral hydration, follow-up primary care provider, if worsening symptoms return to the emergency room Last Vital Signs Date Time Temp Pulse Resp B/P (MAP) Pulse Ox O2 Delivery O2 Flow Rate FiO2 06/12/19 18:05 97.9 82 16 99/62 (74) 96 Room Air Disposition: HOME, SELF-CARE Condition: Stable Scripts Phenazopyridine Hcl* (PYRIDIUM*) 200 Mg Tablet 200 MG ORAL THREE TIMES A DAY for 2 Days, #6 TAB 0 Refills Prov: Claire Vu 06/12/19 Nitrofurantoin Monohyd/M-Cryst* (MACROBID 100 MG*) 100 Mg Capsule 100 MG ORAL EVERY 12 HOURS for 7 Days, #14 CAP Prov: Claire Vu 06/12/19 Patient Instructions: Dysuria Claire Vu Jun 12, 2019 19:10
[2019-06-12] MEDS ORDERED: NITROFURANTOIN100 M2 ORAL (19:12)
[2019-06-12] MEDS ORDERED: PHENAZOPYRIDIN200 MG ORAL (19:12)
[2019-06-12 19:15] VITALS: BP 102/75
--- NOTE | 2019-06-12 19:15 | NUR ---
ER DISCHARGE NOTE: Patient is cleared to be discharged per ERMD, pt is aox4, on room air, with stable vital signs. pt was given dc and prescription instructions, pt was able to verbalize understanding, pt id band removed. pt is able to ambulate with steady gait. pt took all belongings. pt stable upon discharge.
== END 2019-06-12 19:15 | disposition home or self-care (01) ==
LOC: EMR 18:19
DX: R30.0 Dysuria (principal); Z88.2 Allergy status to sulfonamides
CPT/HCPCS: 81003; 81025; 99282

== ENCOUNTER 2019-06-15 12:25 | Emergency (ER) | payer SELFPAY ==
[~2019-06-15] VITALS: Ht 162.6 cm; Wt 72.6 kg
[2019-06-15 12:31] VITALS: BP 105/69
[2019-06-15] MEDS ORDERED: ZYPREXA2.5 MG ORAL ×2 (12:38→14:05)
[2019-06-15] MEDS ORDERED: GEODON20 MG ORAL (12:38)
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
--- NOTE | 2019-06-15 13:47 | Diagnostic Imaging Report ---
Indications: Facial trauma Technique: Spiral images obtained through the facial bones. No IV contrast utilized. Multiplanar reconstructions were generated.Total dose length product 375 mGycm. CTDIvol(s) 15 mGy. Dose reduction achieved using automated exposure control Comparison: none Findings: There is mild right malar region soft tissue swelling, predominantly involving the subcutaneous fat. No acute fractures. No worrisome sinus opacification. The nasal septum is midline. The dentition is intact. The mastoids are clear. Visualized orbits are unremarkable. The visualized intracranial structures are unremarkable. The deep facial soft tissues are unremarkable. There is evidence of dental caries involving the right third mandibular molar. Impression: No acute bony trauma Incidental finding of suspected dental caries involving the right third mandibular molar The CT scanner at [facility] is accredited by the [employer] and the scans are performed using protocols designed to limit radiation exposure to as low as reasonably achievable to attain images of sufficient resolution adequate for diagnostic evaluation.
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
--- NOTE | 2019-06-15 14:09 | Diagnostic Imaging Report ---
Indications: Head trauma Technique: Spiral acquisitions obtained through the brain. Angled axial and coronal 5 x 5 mm slices were reconstructed. Total dose length product 1018 mGycm. CTDI vol(s) 53 mGy. Dose reduction achieved using automated exposure control Comparison: None. Findings: No acute intracranial hemorrhage or edema. No mass effect nor midline shift. Normal blakely-white differentiation. Normal size ventricles and extra axial CSF spaces. Visualized orbits and sinuses are unremarkable. The mastoids are clear. Impression: Negative The CT scanner at [facility] is accredited by the [employer] and the scans are performed using protocols designed to limit radiation exposure to as low as reasonably achievable to attain images of sufficient resolution adequate for diagnostic evaluation.
[2019-06-15 14:39] VITALS: BP 110/70
--- NOTE | 2019-06-15 14:39 | NUR ---
ER DISCHARGE NOTE: Patient cleared for DC by Claire ARMENTA. Patient AxO x 4, no s/s of acute distress. ID band removed. Patient walks with steady gait, all belongings with patient. Patient verbalized understanding of DC instructions.
== END 2019-06-15 14:39 | disposition home or self-care (01) ==
LOC: EMR 13:16
DX: F20.9 Schizophrenia, unspecified (principal); S00.83XA Contusion of other part of head, initial encounter; W22.01XA Walked into wall, initial encounter; Y93.9 Activity, unspecified; Y92.9 Unspecified place or not applicable; Z88.2 Allergy status to sulfonamides
CPT/HCPCS: 70450; 70486; 99284

== ENCOUNTER 2019-07-17 15:41 | Emergency (ER) | payer SELFPAY ==
[~2019-07-17] VITALS: Ht 165.1 cm; Wt 70.3 kg
[~2019-07-17 15:41] MED LIST changes: +GEODON20 MG ORAL
--- NOTE | 2019-07-17 15:41 | NUR ---
ED Nurse Note: pt arrives from home a/ox4 states she is having upper abd pain, body aches and no n/v/d. relates no fever at home but states she has a cough.. denies recent known virus exposure. speaks full sentences well no dyspnea noted. pt relates s/s started 2 days ago
[2019-07-17 15:45] VITALS: BP 97/69
--- NOTE | 2019-07-17 15:45 | NUR ---
ELOPEMENT: pt leaving before fruther eval pa aware.
--- NOTE | 2019-07-17 16:31 | Emergency Room Report ---
History of Present Illness General Chief Complaint: Flu Like Symptoms Source: Patient Present Illness HPI This patient left prior to evaluation by medical provider. Allergies: Coded Allergies: SULFA (SULFONAMIDE ANTIBIOTICS) (Verified Allergy, Unknown, Rash, 12/18/18) COVID-19 Screening Contact w/high risk pt: No Recent Travel to affected area: No Experienced COVID-19 symptoms?: Yes COVID-19 symptoms experienced: Cough Patient History Last Menstrual Period: last week Now: No Nursing Documentation-[facility] Past Medical History: No History, Except For Hx Asthma: Yes History Of Psychiatric Problem: Yes - substance abuse Physical Exam Vital Signs Date Time Temp Pulse Resp B/P (MAP) Pulse Ox O2 Delivery O2 Flow Rate FiO2 07/17/19 15:35 97.5 96 18 97/69 (78) 100 Room Air Medical Decision Making PA Attestation Dr. Carlisle is my supervising Physician whom patient management has been discussed with. ER Course This patient left prior to evaluation by medical provider. Last Vital Signs Date Time Temp Pulse Resp B/P (MAP) Pulse Ox O2 Delivery O2 Flow Rate FiO2 07/17/19 15:50 96 18 Room Air 07/17/19 15:45 97.5 97/69 100 Disposition: LEFT W/OUT BEING SEEN Condition: Unknown Referrals: NOT CHOSEN [facility]/,REFERRING (PCP) Amy Gold Jul 17, 2019 16:31
== END 2019-07-17 16:30 | disposition left against medical advice (07) ==
LOC: EMR 16:11
DX: Z53.21 Procedure and treatment not carried out due to patient leaving prior to being seen by health care provider (principal)

== ENCOUNTER 2019-07-31 04:03 | Emergency (ER) | payer SELFPAY ==
[~2019-07-31] VITALS: Ht 170.2 cm; Wt 77.1 kg
--- NOTE | 2019-07-31 04:10 | NUR ---
ED Nurse Note: Patient walked in to ED c/o right arm pain S/P fall last night at 2300. Denies KO/ LOC. Stated that she landed on her face. Reports pain on her face. Pt able to move her arm. No SOB. Afebrile. VSS.
[2019-07-31 04:12] VITALS: BP 100/69
[2019-07-31] MEDS ORDERED: Acetaminophen 500mg (ES) tab ORAL ONE (04:30)
[2019-07-31] MEDS ORDERED: TYLENOL EXTRA500 MG ORAL (04:40)
[2019-07-31 04:55] VITALS: BP 108/68
--- NOTE | 2019-07-31 05:52 | Emergency Room Report ---
History of Present Illness General Chief Complaint: Upper Extremity Injury Source: Patient Present Illness HPI 29-year-old female presents with right hand pain. States that last night she had a mechanical trip and fall landing on her right hand. Denies any other injuries. Pain is dull, 3 out of 10, nonradiating. No other aggravating relieving factors. Denies any other associated symptoms Allergies: Coded Allergies: SULFA (SULFONAMIDE ANTIBIOTICS) (Verified Allergy, Unknown, Rash, 12/18/18) COVID-19 Screening Contact w/high risk pt: No Recent Travel to affected area: No Experienced COVID-19 symptoms?: No COVID-19 symptoms experienced: Cough Patient History Past Medical History: asthma Past Surgical History: none Pertinent Family History: none Social History: Denies: smoking, alcohol use, drug use Last Menstrual Period: 06/30/2019 Now: No Immunizations: UTD Reviewed Nursing Documentation: PMH: Agreed; PSxH: Agreed Nursing Documentation-PMH Hx Asthma: Yes Review of Systems All Other Systems: negative except mentioned in HPI Physical Exam Vital Signs Date Time Temp Pulse Resp B/P (MAP) Pulse Ox O2 Delivery O2 Flow Rate FiO2 07/31/19 04:05 97.9 75 16 100/69 (79) 95 Room Air Sp02 EP Interpretation: reviewed, normal General Appearance: no apparent distress, alert, GCS 15, non-toxic Head: normocephalic Eyes: bilateral eye normal inspection, bilateral eye PERRL ENT: normal ENT inspection Neck: normal inspection Respiratory: normal inspection Cardiovascular #1: normal inspection Gastrointestinal: normal inspection Rectal: deferred Genitourinary: no CVA tenderness Musculoskeletal: normal range of motion - R hand, tender Neurologic: alert, motor strength/tone normal, oriented x3, sensory intact, responsive, speech normal Psychiatric: normal inspection Skin: no rash Lymphatic: normal inspection Procedures Splinting Splinting : Consent: Verbal Pre-Made Type: velcro Splint: wrist Pre-Proc Neuro Vasc Exam: normal Post-Proc Neuro Vasc Exam: normal Patient Tolerated: Well Complications: None Medical Decision Making Diagnostic Impression: Primary Impression: Hand injury Qualified Codes: S69.91XA - Unspecified injury of right wrist, hand and finger (s), initial encounter ER Course Hospital Course 29 yo F presents with R hand pain s/p fall Differential diagnoses include: Fracture, dislocation, sprain, contusion Clinical course Patient placed on stretcher. After initial history and physical, I ordered pain medications and wrist splint. There is full range of motion. No bruising or crepitus. No swelling. I have low suspicion for fracture but I offered option for x-ray. Patient declined. Diagnosis - hand injury Stable and discharged to home with prescription for tylenol. apply ice, keep elevated. weight bear as tolerated. Followup with PMD/ortho. Return to ED if symptoms recur or worsen Last Vital Signs Date Time Temp Pulse Resp B/P (MAP) Pulse Ox O2 Delivery O2 Flow Rate FiO2 07/31/19 04:55 97.9 74 16 108/68 99 Room Air Status: improved Disposition: HOME, SELF-CARE Condition: Stable Scripts Acetaminophen* (TYLENOL EXTRA STRENGTH*) 500 Mg Tablet 500 MG ORAL Q8H PRN for Prn Headache/Temp > 101, #30 TAB 0 Refills Prov: Carlos Carlisle MD 07/31/19 [facility] 24 hour /7 days a week by Appointment Only [address] [facility] [address] Patient Instructions: Hand Contusion, [id number] Carlos Carlisle MD Jul 31, 2019 05:51
== END 2019-07-31 04:55 | disposition home or self-care (01) ==
LOC: EMR 04:17
DX: S69.91XA Unspecified injury of right wrist, hand and finger(s), initial encounter (principal); W01.0XXA Fall on same level from slipping, tripping and stumbling without subsequent striking against object, initial encounter; Y92.9 Unspecified place or not applicable; Z88.2 Allergy status to sulfonamides
CPT/HCPCS: 99282

== ENCOUNTER 2019-08-09 13:28 | Emergency (ER) | payer SELFPAY ==
[~2019-08-09] VITALS: Ht 170.2 cm; Wt 81.6 kg
[2019-08-09 13:44] VITALS: BP 100/62
--- NOTE | 2019-08-09 14:27 | Emergency Room Report ---
History of Present Illness General Chief Complaint: Medication Refill Source: Patient Present Illness HPI 29-year-old female with history of bipolar schizophrenia here requesting a refill on Zyprexa. Patient has been multiple times for different complaints and appears to have a history of not being compliant with taking her psychiatric medication. Patient does not yet have established psychiatric psychiatrist. However reports that she has been taking her Zyprexa and the last time she took it was last week. Denies any suicidal homicidal ideations. Denies any changes in behavior. Sitting comfortably. I have seen this patient multiple times before and from my examination today appears to be currently medicated, and behaviorally managed. Denies chest pain, shortness of breath, cough or congestion, at this time. Patient is for 2-week supply at this time however gave her a list of mental health facilities direct contact for further evaluation. Patient agrees. Allergies: Coded Allergies: SULFA (SULFONAMIDE ANTIBIOTICS) (Verified Allergy, Unknown, Rash, 12/18/18) Patient History Past Medical History: see triage record Past Surgical History: none Family History: none Last Menstrual Period: June 2019 Now: No : 0 Para: 0 Immunizations: UTD Reviewed Nursing Documentation: PMH: Agreed; PSxH: Agreed Nursing Documentation-PMH Past Medical History: No History, Except For Hx Asthma: Yes History Of Psychiatric Problem: Yes - Bipolar Review of Systems All Other Systems: negative except mentioned in HPI Physical Exam Vital Signs Date Time Temp Pulse Resp B/P (MAP) Pulse Ox O2 Delivery O2 Flow Rate FiO2 08/09/19 13:38 97.9 90 18 95/58 (70) 99 Room Air Sp02 EP Interpretation: reviewed, normal General Appearance: alert/responsive, no apparent distress, GCS 15, non-toxic Head: atraumatic Eyes: PERRL, lids + conjunctiva normal ENT: hearing intact, no angioedema Neck: supple/symm/no masses, no meningismus Respiratory: effort normal, no wheezing, chest symmetrical Cardiovascular: regular rate, rhythm, no edema Gastrointestinal: non-tender Musculoskeletal: gait & station normal, normal ROM, strength & tone normal, non -tender Neurologic: oriented x3, sensory intact, normal speech Psychiatric: judgment & insight normal, memory normal, mood normal, no suicidal /homicidal ideation Skin: no rash, well hydrated Lymphatic: normal inspection Medical Decision Making PA Attestation All my diagnosis and treatment plans were reviewed ad discussed with my supervising physician Dr. Aviles Diagnostic Impression: Primary Impression: Encounter for medication refill Additional Impression: Bipolar disorder ER Course 29-year-old female with history of bipolar schizophrenia here requesting a refill on Zyprexa. Patient has been multiple times for different complaints and appears to have a history of not being compliant with taking her psychiatric medication. Patient does not yet have established psychiatric psychiatrist. However reports that she has been taking her Zyprexa and the last time she took it was last week. Denies any suicidal homicidal ideations. Denies any changes in behavior. Sitting comfortably. I have seen this patient multiple times before and from my examination today appears to be currently medicated, and behaviorally managed. Denies chest pain, shortness of breath, cough or congestion, at this time. Patient is for 2-week supply at this time however gave her a list of mental health facilities direct contact for further evaluation. Patient agrees. Ddx considered but are not limited to: generalized anxiety disorder, panic attack, depression with psychotic feature, bipolar disorder, drug overdose Vital signs: are WNL, pt. is afebrile H&PE are most consistent with: Encounter for medication refill for bipolar disorder ORDERS: Zyprexa 2.5 mg daily for 2 weeks supply ED INTERVENTIONS: None required at this time. Patient was evaluated in the context of the global COVID-19 pandemic, which necessitated consideration that the patient might be at risk for infection with the SARS-COV-2 virus that causes COVID-19. Institutional protocols and algorithms that pertain to the evaluation of patients at risk for COVID-19 are in a state of rapid change based on information relieved by multiple regulatory bodies including the CDC and the federal and state organizations. These policies and algorithms were followed during the patient's care in the ED. DISCHARGE: At this time pt. is stable for d/c to home. Will provide printed patient care instructions, and any necessary prescriptions. Care plan and follow up instructions have been discussed with the patient prior to discharge. Last Vital Signs Date Time Temp Pulse Resp B/P (MAP) Pulse Ox O2 Delivery O2 Flow Rate FiO2 08/09/19 13:44 98.2 80 16 100/62 97 Room Air Disposition: HOME, SELF-CARE Condition: Stable Scripts Olanzapine* (ZYPREXA*) 2.5 Mg Tablet 2.5 MG ORAL DAILY for 14 Days, #14 TAB 0 Refills Prov: Claire Vu 08/09/19 Patient Instructions: Medicine Refill at the Emergency Department Claire Vu Aug 09, 2019 14:27
[2019-08-09] MEDS ORDERED: ZYPREXA2.5 MG ORAL (14:28)
[2019-08-09 14:32] VITALS: BP 102/58
== END 2019-08-09 14:32 | disposition home or self-care (01) ==
LOC: EMR 14:25
DX: F31.9 Bipolar disorder, unspecified (principal); Z76.0 Encounter for issue of repeat prescription; Z88.2 Allergy status to sulfonamides; F20.9 Schizophrenia, unspecified
CPT/HCPCS: 99282

== ENCOUNTER 2019-08-15 08:27 | Emergency (ER) | payer SELFPAY ==
[~2019-08-15] VITALS: Ht 170.2 cm; Wt 80.3 kg
--- NOTE | 2019-08-15 08:45 | NUR ---
ED Nurse Note: pt c/o as per triage. urine obtained and sent, pt requesting juice. aware to remain npo until md jules pt.
[2019-08-15 08:47] VITALS: BP 97/66
[2019-08-15] MEDS ORDERED: Acetaminophen 500mg (ES) tab ORAL ONE (09:00)
[2019-08-15 09:12] LABS: APPEARANCE,URINE CLEAR; BILIRUBIN, URINE NEGATIVE (NEGATIVE); COLOR,URINE PALE YELLOW; GLUCOSE, URINE (UA) NEGATIVE (NEGATIVE); KETONES,URINE NEGATIVE (NEGATIVE); LEUKOCYTE ESTERASE ,URINE 1+ (NEGATIVE); NITRITE,URINE NEGATIVE (NEGATIVE); PH,URINE 8 (4.5-8.0); PROTEIN,URINE 1+ (NEGATIVE); UROBILINOGEN,URINE NORMAL MG/DL (0.0-1.0)
[2019-08-15] MEDS ORDERED: PHENAZOPYRIDIN100 MG ORAL (09:31)
[2019-08-15] MEDS ORDERED: IBUPROFEN600 M1 ORAL (09:31)
[2019-08-15] MEDS ORDERED: CEPHALEXIN500 MG ORAL (09:31)
--- NOTE | 2019-08-15 09:35 | NUR ---
ED Nurse Note: Pt cleared by health care Provider for discharge. DC instructions/prescription was given and explained to pt and verbalized understanding of teachings. All medical devices such as ID band removed. Pt is AAO x4, ambulatory and left with all personal belongings.
[2019-08-15 09:36] VITALS: BP 97/66
--- NOTE | 2019-08-15 09:43 | Emergency Room Report ---
History of Present Illness General Chief Complaint: Abdominal Pain Source: Patient, Medical Record Present Illness HPI 29-year-old female presents for cramping pain. Started 2 days ago. Notes pain in suprapubic area. Notes spotting. States she is on her period. Pain is 5 out of 10, nonradiating. Also notes frequent urination. Denies nausea or vomiting. Denies any diarrhea. No other aggravating relieving factors. Denies any other associated symptoms Allergies: Coded Allergies: SULFA (SULFONAMIDE ANTIBIOTICS) (Verified Allergy, Unknown, Rash, 12/18/18) COVID-19 Screening Contact w/high risk pt: No Recent Travel to affected area: No Experienced COVID-19 symptoms?: No COVID-19 symptoms experienced: Cough Patient History Past Medical History: asthma Past Surgical History: none Pertinent Family History: none Social History: Denies: smoking, alcohol use, drug use Last Menstrual Period: currently on her period Now: No Immunizations: UTD Reviewed Nursing Documentation: PMH: Agreed; PSxH: Agreed Nursing Documentation-PMH Hx Asthma: Yes Review of Systems All Other Systems: negative except mentioned in HPI Physical Exam Vital Signs Date Time Temp Pulse Resp B/P (MAP) Pulse Ox O2 Delivery O2 Flow Rate FiO2 08/15/19 08:31 98.4 106 16 97/66 (76) 95 Room Air Sp02 EP Interpretation: reviewed, normal General Appearance: no apparent distress, alert, GCS 15, non-toxic Head: normocephalic, atraumatic Eyes: bilateral eye normal inspection, bilateral eye PERRL ENT: hearing grossly normal, normal pharynx, no angioedema, normal voice Neck: full range of motion, supple/symm/no masses Respiratory: chest non-tender, lungs clear, normal breath sounds, speaking full sentences Cardiovascular #1: regular rate, rhythm, no edema Cardiovascular #2: 2+ carotid (R), 2+ carotid (L), 2+ radial (R), 2+ radial (L) , 2+ dorsalis pedis (R), 2+ dorsalis pedis (L) Gastrointestinal: normal bowel sounds, non tender, soft, non-distended, no guarding, no rebound Rectal: deferred Genitourinary: normal inspection, no CVA tenderness Musculoskeletal: back normal, normal range of motion, gait/station normal, non- tender Neurologic: alert, motor strength/tone normal, oriented x3, sensory intact, responsive, speech normal Psychiatric: judgement/insight normal, memory normal, mood/affect normal, no suicidal/homicidal ideation Reflexes: 3+ bicep (R), 3+ bicep (L), 3+ tricep (R), 3+ tricep (L), 3+ knee (R) , 3+ knee (L) Lymphatic: no adenopathy Medical Decision Making Diagnostic Impression: Primary Impression: UTI (urinary tract infection) Qualified Codes: N39.0 - Urinary tract infection, site not specified ER Course Hospital Course 29-year-old female presents to ED complaining of dysuria with suprapubic pain. Differential diagnoses include: UTI, cystitis, pyelonephritis Clinical course Patient placed on stretcher. After initial history and physical I ordered UA, urine , tylenol. UA + bacteria. not . I discussed with patient. Will discharge home with antibiotics, Pyridium. Patient does not have a PMD. I will provide referrals Diagnosis - UTI Stable and discharged home with prescriptions for Rx keflex, pyridium, motrin. Instructed to followup with PMD. Return to ED if symptoms recur or worsen Labs Test 08/15/19 08:40 Urine Color Pale yellow Urine Appearance Clear Urine pH 8 (4.5-8.0) Urine Specific [place] 1.015 (1.005-1.035) Urine Protein 1+ (NEGATIVE) Urine Glucose (UA) Negative (NEGATIVE) Urine Ketones Negative (NEGATIVE) Urine Blood 5+ (NEGATIVE) Urine Nitrite Negative (NEGATIVE) Urine Bilirubin Negative (NEGATIVE) Urine Urobilinogen Normal MG/DL (0.0-1.0) Urine Leukocyte Esterase 1+ (NEGATIVE) Urine RBC 60-80 /HPF (0 - 2) Urine WBC 10-15 /HPF (0 - 2) Urine Squamous Epithelial Cells Few /LPF (NONE/OCC) Urine Bacteria Few /HPF (NONE) Urine HCG, Qualitative Negative (NEGATIVE) Last Vital Signs Date Time Temp Pulse Resp B/P (MAP) Pulse Ox O2 Delivery O2 Flow Rate FiO2 08/15/19 08:47 88 16 Room Air 08/15/19 08:47 98.4 97/66 95 Status: improved Disposition: HOME, SELF-CARE Condition: Stable Scripts Phenazopyridine Hcl* (PYRIDIUM*) 100 Mg Tablet 100 MG ORAL THREE TIMES A DAY for 3 Days, TAB Prov: Carlos Carlisle MD 08/15/19 Ibuprofen* (MOTRIN*) 600 Mg Tablet 600 MG ORAL Q8H PRN for FOR PAIN, #30 TAB 0 Refills Prov: Carlos Carlisle MD 08/15/19 Cephalexin* (KEFLEX*) 500 Mg Capsule 500 MG ORAL EVERY 6 HOURS for 7 Days, CAP Prov: Carlos Carlisle MD 08/15/19 Referrals: Genaro Jansen [facility] Patient Instructions: Dysuria Carlos Carlisle MD Aug 15, 2019 09:43
== END 2019-08-15 09:37 | disposition home or self-care (01) ==
LOC: EMR 08:44
DX: N39.0 Urinary tract infection, site not specified (principal); Z88.2 Allergy status to sulfonamides
CPT/HCPCS: 81003; 81025; 87086; 99283

== ENCOUNTER 2019-08-26 00:23 | Emergency (ER) | payer SELFPAY ==
[~2019-08-26] VITALS: Ht 165.1 cm; Wt 68.0 kg
[~2019-08-26 00:23] MED LIST changes: +CEPHALEXIN500 MG ORAL; +IBUPROFEN600 M1 ORAL
--- NOTE | 2019-08-26 00:35 | NUR ---
ED Nurse Note: pt presents to ED needing a refill on her zyprexa. pt was seen here 2 weeks ago for the same concern and given an prescription then as well. states that she does not currently have a PCP for her med refills
--- NOTE | 2019-08-26 00:36 | NUR ---
ED Nurse Note: pt has no other complaints at this time, is asking for something to eat
[2019-08-26 00:44] VITALS: BP 103/70
[2019-08-26] MEDS ORDERED: ZYPREXA2.5 MG ORAL (00:46)
--- NOTE | 2019-08-26 00:46 | Emergency Room Report ---
History of Present Illness General Chief Complaint: Medication Refill Source: Patient Present Illness HPI Is a 29-year-old female with a psych history. She has been stable on Zyprexa. She says she is out of it for a day and a refill. She does not have an appointment as an outpatient because of the COVID pandemic. She denies any other symptoms. No suicidal thoughts homicidal thought. No hallucination. Allergies: Coded Allergies: SULFA (SULFONAMIDE ANTIBIOTICS) (Verified Allergy, Unknown, Rash, 12/18/18) COVID-19 Screening Contact w/high risk pt: No Recent Travel to affected area: No Experienced COVID-19 symptoms?: No COVID-19 symptoms experienced: Cough Patient History Past Medical History: see triage record, old chart reviewed Past Surgical History: none Pertinent Family History: none Social History: Denies: smoking Last Menstrual Period: 08-18-2019 Now: No Immunizations: other Reviewed Nursing Documentation: PMH: Agreed; PSxH: Agreed Nursing Documentation-PMH Hx Asthma: Yes Review of Systems Eye: Denies: eye pain, blurred vision ENT: Denies: ear pain, nose congestion, throat swelling Respiratory: Denies: cough, shortness of breath Cardiovascular: Denies: chest pain, palpitations Gastrointestinal: Denies: abdominal pain, diarrhea, nausea, vomiting Musculoskeletal: Denies: back pain, joint pain Skin: Denies: rash Neurological: Denies: headache, numbness Endocrine: Denies: increased thirst, increased urine Hematologic/Lymphatic: Denies: easy bruising All Other Systems: negative except mentioned in HPI Physical Exam Vital Signs Date Time Temp Pulse Resp B/P (MAP) Pulse Ox O2 Delivery O2 Flow Rate FiO2 08/26/19 00:25 98.1 90 15 103/70 (81) 97 Room Air Vitals normal Sp02 EP Interpretation: reviewed, normal General Appearance: well appearing, no apparent distress, alert Head: normocephalic, atraumatic Eyes: bilateral eye PERRL, bilateral eye EOMI ENT: hearing grossly normal, normal pharynx Neck: full range of motion, supple, no meningismus Respiratory: chest non-tender, lungs clear, normal breath sounds Cardiovascular #1: regular rate, rhythm, no murmur Gastrointestinal: normal bowel sounds, non tender, no mass, no organomegaly, no bruit, non-distended Musculoskeletal: back normal, normal range of motion, gait/station normal Psychiatric: mood/affect normal Medical Decision Making Diagnostic Impression: Primary Impression: Encounter for medication refill ER Course Patient here for medication refill. A dose of her Zyprexa given here. Will discharge home. Last Vital Signs Date Time Temp Pulse Resp B/P (MAP) Pulse Ox O2 Delivery O2 Flow Rate FiO2 08/26/19 00:25 98.1 90 15 103/70 (81) 97 Room Air Status: improved Disposition: HOME, SELF-CARE Condition: Stable Scripts Olanzapine* (ZYPREXA*) 2.5 Mg Tablet 2.5 MG ORAL DAILY, #90 TAB 0 Refills Prov: Brad Archibald MD 08/26/19 Patient Instructions: Medicine Refill at the Emergency Department Additional Instructions: Follow-up with your doctor in 7 days. Return if worse. Brad Archibald MD August 26, 2019 00:46
[2019-08-26 00:50] VITALS: BP 103/70
== END 2019-08-26 00:50 | disposition home or self-care (01) ==
LOC: EMR 00:50
DX: Z76.0 Encounter for issue of repeat prescription (principal); Z88.2 Allergy status to sulfonamides
CPT/HCPCS: 99282

== ENCOUNTER 2019-09-28 03:56 | Emergency (ER) | payer SELFPAY ==
[~2019-09-28] VITALS: Ht 165.1 cm; Wt 68.0 kg
--- NOTE | 2019-09-28 04:05 | NUR ---
ED Nurse Note: pt walked in from home stating that she needs a new prescription for sleeping meds. vss, aaox4, ambulatory.
--- NOTE | 2019-09-28 04:15 | NUR ---
ED Nurse Note: ermd at bedside
[2019-09-28] MEDS ORDERED: MELATIN3 MG PO (04:24)
[2019-09-28 04:27] VITALS: BP 134/87
--- NOTE | 2019-09-28 04:30 | Emergency Room Report ---
History of Present Illness General Chief Complaint: Medication Refill Source: Patient Present Illness HPI Disclaimer: Please note that this report is being documented using [employer] technology. This can lead to erroneous entry secondary to incorrect interpretation by the dictating instrument. HPI: 29-year-old female with history of psychiatric disorder presents for evaluation of poor sleep. The patient states she has had difficulty staying asleep lately though for the past few years has had difficulty getting quality sleep. States he has difficulty falling asleep and staying asleep staying her sleep cycles are often disrupted in the middle of the night. She will have racing thoughts keeping her from falling asleep but is currently controlled on her Zyprexa regimen. Has been taking Zyprexa but noted worsening sleep habits. States she does drink a lot of coffee but denies other stimulant use. No other complaints at this time. States she is unable to see her psychiatrist as the office is closed due to COVID-19 Allergies: Coded Allergies: SULFA (SULFONAMIDE ANTIBIOTICS) (Verified Allergy, Unknown, Rash, 12/18/18) COVID-19 Screening Contact w/high risk pt: No Recent Travel to affected area: No Experienced COVID-19 symptoms?: No COVID-19 symptoms experienced: Cough COVID-19 Testing performed FILM COMPOSER: No Nursing Documentation-PMH Hx Asthma: Yes Review of Systems All Other Systems: negative except mentioned in HPI Physical Exam Vital Signs Date Time Temp Pulse Resp B/P (MAP) Pulse Ox O2 Delivery O2 Flow Rate FiO2 09/28/19 04:02 98.8 87 20 134/87 (103) 100 Room Air General: Awake and alert, no acute distress HEENT: NC/AT. EOMI. Resp: Normal work of breathing Skin: Intact. No abrasions, laceration or rash over the exposed skin MSK: Normal tone and bulk. Moving all extremities. No obvious deformity. Neuro: Awake and alert. Mentating appropriately Medical Decision Making Diagnostic Impression: Primary Impression: Sleep difficulties ER Course This a 29-year-old female presenting for evaluation of poor sleep. May be related to the patient's underlying psychiatric disorder, excessive caffeine use , possible stimulant use. She has tested positive for methamphetamines though this was in 2016. She reports using drugs in the past but no longer. She is well-appearing stable vital signs no other complaints at this time. Will try short course of melatonin and I educated the patient on sleep hygiene, avoiding caffeine, avoiding stimulants and to speak with her psychiatrist once she is able to regarding her sleep patterns. Do not believe she requires medical work- up at this time. She is otherwise stable with no other complaints and will be discharged Last Vital Signs Date Time Temp Pulse Resp B/P (MAP) Pulse Ox O2 Delivery O2 Flow Rate FiO2 09/28/19 04:02 98.8 87 20 134/87 (103) 100 Room Air Disposition: HOME, SELF-CARE Condition: Stable Scripts Melatonin (Melatin) 3 Mg Tablet 3 MG PO BEDTIME for 10 Days, #10 TAB Prov: Dave Retana MD 09/28/19 Referrals: Genaro Zavaleta [facility] Psych ER - Peds ER - [facility] Intake Hotline - Patient Instructions: Depression, Adult Additional Instructions: Please follow-up with your primary care doctor in the next 1 to 3 days to discuss this emergency department visit and for reevaluation. If you have any new or worsening symptoms please return to the emergency department for reevaluation. Please note that this report is being documented using [employer] technology. This can lead to erroneous entry secondary to incorrect interpretation by the dictating instrument. Dave Retana MD Sep 28, 2019 04:30
[2019-09-28 04:33] VITALS: BP 134/87
== END 2019-09-28 04:33 | disposition home or self-care (01) ==
LOC: EMR 04:15
DX: G47.8 Other sleep disorders (principal); Z88.2 Allergy status to sulfonamides
CPT/HCPCS: 99282

== ENCOUNTER 2019-10-06 21:25 | Emergency (ER) | payer SELFPAY ==
[~2019-10-06 21:25] MED LIST changes: +MELATIN3 MG PO
--- NOTE | 2019-10-06 22:07 | Emergency Room Report ---
History of Present Illness General Chief Complaint: To Be Triaged Source: Patient Present Illness HPI This patient presents with chief complaint of sore throat and cough. She checked into triage but was called multiple times but never responded. She was not seen by me. Allergies: Coded Allergies: SULFA (SULFONAMIDE ANTIBIOTICS) (Verified Allergy, Unknown, Rash, 12/18/18) COVID-19 Screening Contact w/high risk pt: No Recent Travel to affected area: No Experienced COVID-19 symptoms?: No COVID-19 symptoms experienced: Cough Nursing Documentation-[facility] Hx Asthma: Yes Medical Decision Making Diagnostic Impression: Primary Impression: Sorethroat Disposition: LEFT W/OUT BEING SEEN Condition: Stable Brad Archibald MD Oct 06, 2019 22:07
== END 2019-10-06 21:56 | disposition left against medical advice (07) ==
LOC: EMR 21:56
DX: R07.0 Pain in throat (principal); R05 Cough; Z88.2 Allergy status to sulfonamides

== ENCOUNTER 2020-01-05 12:23 | Emergency (ER) | payer MEDICAID ==
[~2020-01-05] VITALS: Ht 172.7 cm; Wt 81.6 kg
--- NOTE | 2020-01-05 12:43 | Emergency Room Report ---
History of Present Illness General Chief Complaint: Abdominal Pain Source: Patient, Medical Record Present Illness HPI Patient is a 29-year-old female who presents to the ER complaining of suprapubic discomfort that began this morning. Patient states that her symptoms have improved since this morning. She denies any fever or chills. She denies any nausea or vomiting. She denies any diarrhea. She denies any vaginal bleeding. She denies any chest pain or shortness of breath. Allergies: Coded Allergies: SULFA (SULFONAMIDE ANTIBIOTICS) (Verified Allergy, Unknown, Rash, 12/18/18) COVID-19 Screening Contact w/high risk pt: No Recent Travel to affected area: No Experienced COVID-19 symptoms?: No COVID-19 symptoms experienced: Cough COVID-19 Testing performed REED PRESS FEEDER: No Patient History Now: No Reviewed Nursing Documentation: PMH: Agreed; PSxH: Agreed Nursing Documentation-PMH Past Medical History: No History, Except For Hx Asthma: Yes Review of Systems All Other Systems: negative except mentioned in HPI Physical Exam Vital Signs Date Time Temp Pulse Resp B/P (MAP) Pulse Ox O2 Delivery O2 Flow Rate FiO2 01/05/20 12:31 98.4 110 15 87/52 (64) 98 Room Air Sp02 EP Interpretation: reviewed, normal General Appearance: no apparent distress, alert, GCS 15, non-toxic Head: normocephalic, atraumatic Eyes: bilateral eye normal inspection, bilateral eye PERRL ENT: hearing grossly normal, normal pharynx, no angioedema, normal voice Neck: full range of motion, supple/symm/no masses Respiratory: chest non-tender, lungs clear, normal breath sounds, speaking full sentences Cardiovascular #1: tachycardia Gastrointestinal: normal bowel sounds, non tender, soft, non-distended, no guarding, no rebound, other - No tenderness elicited on my examination Rectal: deferred Genitourinary: no CVA tenderness Musculoskeletal: moves extm spontaneously Neurologic: engineering drafter III-XII nml as tested, oriented x3 Psychiatric: no suicidal/homicidal ideation Skin: no rash Lymphatic: no adenopathy Medical Decision Making Diagnostic Impression: Primary Impression: UTI (urinary tract infection) Additional Impression: Methamphetamine abuse ER Course Patient's labs demonstrate no significant acute abnormalities. UA with possible UTI. Patient given Keflex. Patient has no elevated white blood cell count had no abdominal pain on my exam and has no fever. Patient's UDS positive for methamphetamines. Patient counseled on the harms of drug abuse. After discussing risks and benefits of further diagnostics, treatment plans, as well as indications for and risks of admission, the patient is agreeable to being discharged home. I have explained that their evaluation and treatment in the emergency department today is an important step towards them achieving better health but that their evaluation today is not intended to replace further evaluation and treatment by a physician in their local clinic. I have explained that while the current findings suggest no immediate life threatening emergency they will require further evaluation and treatment by a physician of their choice in their area. They understand that it will be necessary for them to review the final reports of their ED visit with their clinic physician. We have reviewed indications for return to the Emergency Department. I have explained that additional time may need to pass and/or additional testing as an outpatient may be necessary before a definitive diagnosis can be made. They tell me they are willing to follow up as instructed within the timeframe I recommend. They appear to understand what we discussed. Additionally they understand that if they are unable to be seen by an outpatient physician they are welcome, and in fact should, return to the Emergency Department for a repeat evaluation. The patient is stable at time of discharge. Last Vital Signs Date Time Temp Pulse Resp B/P (MAP) Pulse Ox O2 Delivery O2 Flow Rate FiO2 01/05/20 12:31 98.4 110 15 87/52 (64) 98 Room Air Disposition: HOME, SELF-CARE Condition: Stable Scripts Cephalexin* (KEFLEX*) 500 Mg Capsule 500 MG ORAL EVERY 8 HOURS for 3 Days, CAP Prov: Leida Valiente M.D. 01/05/20 Additional Instructions: The patient was provided with discharge instructions, notified to follow-up with a primary care doctor and or specialist in the next 24-48 hours, and to return to the ED if they have worsening of their symptoms. Please note that this report is being documented using [employer] technology. This can lead to erroneous entry secondary to incorrect interpretation by the dictating instrument. Leida Valiente M.D. Jan 05, 2020 12:43
[2020-01-05 12:50] VITALS: BP 101/65
[2020-01-05 13:17] LABS: ANION GAP 8 mmol/L (5-15); BLOOD UREA NITROGEN 11 mg/dL (7-18); CALCIUM 9.4 MG/DL (8.5-10.1); CARBON DIOXIDE 31 MMOL/L (21-32); CHLORIDE 104 MMOL/L (98-107); CREATININE 0.7 MG/DL (0.55-1.30); POTASSIUM 3.7 MMOL/L (3.5-5.1); SODIUM 143 MMOL/L (136-145)
[2020-01-05 13:22] LABS: ALANINE AMINOTRANSFERASE 22 U/L (12-78); ALBUMIN 3.9 G/DL (3.4-5.0); ALBUMIN/GLOBULIN RATIO 0.9 (1.0-2.7); ALKALINE PHOSPHATASE 44 U/L (46-116); ASPARTATE AMINO TRANSFERASE 12 U/L (15-37); BILIRUBIN,TOTAL 0.2 MG/DL (0.2-1.0)
[2020-01-05 13:25] LABS: BASOPHILS % (AUTO) 1.2 % (0.0-2.0); EOSINOPHILS % (AUTO) 0.5 % (0.0-3.0); HEMATOCRIT 48.9 % (37.0-47.0); HEMOGLOBIN 16.8 G/DL (12.0-16.0); LYMPHOCYTES % (AUTO) 31.9 % (20.0-45.0); MEAN CORPUSCULAR VOLUME 93 FL (80-99); MONOCYTES % (AUTO) 9.3 % (1.0-10.0); NEUTROPHILS % (AUTO) 57.1 % (45.0-75.0); PLATELET COUNT 216 K/UL (150-450); RED BLOOD COUNT 5.24 M/UL (4.20-5.40); RED CELL DISTRIBUTION WIDTH 11.4 % (11.6-14.8); WHITE BLOOD COUNT 5.9 K/UL (4.8-10.8)
[2020-01-05 13:29] LABS: BILIRUBIN, URINE NEGATIVE (NEGATIVE); COLOR,URINE PALE YELLOW; GLUCOSE, URINE (UA) NEGATIVE (NEGATIVE); KETONES,URINE NEGATIVE (NEGATIVE); LEUKOCYTE ESTERASE ,URINE 1+ (NEGATIVE); NITRITE,URINE NEGATIVE (NEGATIVE); PH,URINE 7 (4.5-8.0); PROTEIN,URINE NEGATIVE (NEGATIVE); UROBILINOGEN,URINE NORMAL MG/DL (0.0-1.0)
[2020-01-05 13:30] LABS: APPEARANCE,URINE SLIGHTLY CLOUDY
[2020-01-05] MEDS ORDERED: CEPHALEXIN500 MG ORAL (13:44)
[2020-01-05] MEDS ORDERED: Cephalexin 500mg cap ORAL ONE (13:45)
[2020-01-05 13:53] VITALS: BP 113/69
== END 2020-01-05 13:54 | disposition home or self-care (01) ==
LOC: EMR 12:56
DX: N39.0 Urinary tract infection, site not specified (principal); F15.10 Other stimulant abuse, uncomplicated; Z88.2 Allergy status to sulfonamides
CPT/HCPCS: 36415; 80053; 80307; 81003; 81025; 83690; 83735; 85025; 96360; Z7502; 99284

== ENCOUNTER 2020-03-06 06:33 | Emergency (ER) | payer MEDICAID, OTHER ==
[~2020-03-06] VITALS: Ht 165.1 cm; Wt 68.0 kg
--- NOTE | 2020-03-06 06:48 | NUR ---
ED Nurse Note: Patient walked in from home d/t laceration on left hand on second finger occurred at approximately 0500 today. Patient aao x 4 and ambulatory with steady gait. Patient reported she was using a knife at home and accidentally cut her finger. Pain with movement. Patient stable during assessment.
[2020-03-06 06:50] VITALS: BP 112/75
--- NOTE | 2020-03-06 06:53 | NUR ---
HAND-OFF: Report given to EDDIE Smith.
--- NOTE | 2020-03-06 06:57 | NUR ---
ED Nurse Note: Patient reports she has had a tdap shot within the last 10 years.
[2020-03-06] MEDS ORDERED: Lidocaine 1% MPF 10mg/ml 5ml INJ ONE (07:00)
[2020-03-06] MEDS ORDERED: Tetanus/Diptheria/Pertussis IM ONE (07:00)
--- NOTE | 2020-03-06 07:13 | Emergency Room Report ---
History of Present Illness General Chief Complaint: Laceration Source: Patient Present Illness HPI The patient states that at 4 AM this morning she was trying to open a package with a kitchen knife and she cut her left index finger. She was seen at another emergency room and the laceration was Dermabond did. She states that it started bleeding about an hour prior to arrival here. She is requesting repeat Dermabond. She has no other injuries or complaints. She is not up-to-date on tetanus. Allergies: Coded Allergies: SULFA (SULFONAMIDE ANTIBIOTICS) (Verified Allergy, Unknown, Rash, 12/18/18) COVID-19 Screening Contact w/high risk pt: No Recent Travel to affected area: No Experienced COVID-19 symptoms?: No COVID-19 symptoms experienced: Cough COVID-19 Testing performed FIRER DIESEL LOCOMOTIVE: No Patient History Past Medical History: see triage record, asthma Social History: Reports: drug use Last Menstrual Period: 02/2020 Reviewed Nursing Documentation: PMH: Agreed; PSxH: Agreed Nursing Documentation-PMH Hx Asthma: Yes Review of Systems All Other Systems: negative except mentioned in HPI Physical Exam Vital Signs Date Time Temp Pulse Resp B/P (MAP) Pulse Ox O2 Delivery O2 Flow Rate FiO2 03/06/20 06:43 98.4 126 16 110/73 (85) 97 Room Air Sp02 EP Interpretation: reviewed, normal General Appearance: no apparent distress, alert, GCS 15, non-toxic Head: normocephalic, atraumatic ENT: hearing grossly normal, normal pharynx, no angioedema, normal voice Neck: normal inspection, full range of motion, supple/symm/no masses Respiratory: no respiratory distress, no retraction, no accessory muscle use, speaking full sentences Rectal: deferred Musculoskeletal: normal inspection, gait/station normal, non-tender Neurologic: alert, motor strength/tone normal, oriented x3, sensory intact, responsive, speech normal Psychiatric: judgement/insight normal, memory normal, mood/affect normal, no suicidal/homicidal ideation Skin: other - L. index finger with superficial (<0.5mm) irregular laceration. Edge of thin flap with dried blood. Procedures Splinting Splinting : Consent: Verbal Location: L. index finger Pre-Made Type: metal Splint: extension Pre-Proc Neuro Vasc Exam: normal Patient Tolerated: Well Complications: None Laceration/Wound Repair Laceration/Wound Repair : Consent: Verbal Wound Location: upper extremity Wound's Depth, Shape: superficial Wound Length (cm): 1 Wound Explored: clean Wound Repaired With: Dermabond Sling Applied?: Yes Patient Tolerated: Well Complications: None Medical Decision Making Diagnostic Impression: Primary Impression: Finger laceration ER Course This patient has a small superficial finger laceration with a irregular skin flap. The laceration does not involve any of the subcutaneous tissue. The lac eration was approximated with Dermabond. The patient's tetanus immunization was updated. The finger was splinted to protect the wound and provide wound healing. The patient was educated on wound care precautions and follow-up instructions. Last Vital Signs Date Time Temp Pulse Resp B/P (MAP) Pulse Ox O2 Delivery O2 Flow Rate FiO2 03/06/20 06:50 98.4 72 16 112/75 99 Room Air Status: improved Disposition: HOME, SELF-CARE Condition: Improved Patient Instructions: Laceration Care, Adult Elsie Aviles DO Mar 06, 2020 07:13
[2020-03-06 07:20] VITALS: BP 123/72
--- NOTE | 2020-03-06 07:20 | NUR ---
ED Nurse Note: Pt's finger dermabonded, dressed, and splinted. Pt cleared by health care Provider for discharge. DC instructions were given and explained to pt and verbalized understanding of teachings. All medical deviecs such as ID band removed. Pt is AAO x4, ambulatory and left with all personal belongings.
== END 2020-03-06 07:20 | disposition home or self-care (01) ==
LOC: EMR 07:10
DX: S61.211A Laceration without foreign body of left index finger without damage to nail, initial encounter (principal); J45.909 Unspecified asthma, uncomplicated; W26.0XXA Contact with knife, initial encounter; Y93.89 Activity, other specified; Y92.019 Unspecified place in single-family (private) house as the place of occurrence of the external cause; Z88.2 Allergy status to sulfonamides
CPT/HCPCS: 12001; Z7502; 99283